=== PATIENT | female | born 1955 | race Hispanic/Latino ===

== ENCOUNTER 2016-12-16 08:23 | Inpatient (IN) | payer MEDICARE, OTHER ==
[2016-12-16] MEDS ORDERED: Albuterol-Ipratrop 3 mg / 0.5 (3 ml) UD IH STA (08:48)
[2016-12-16] MEDS ORDERED: Sodium Chloride 0.9% 1,000 ML IV ONE (08:48)
[2016-12-16] MEDS ORDERED: Albuterol-Ipratrop 3 mg / 0.5 (3 ml) UD ONE ×3 (09:21→11:49)
[2016-12-16 09:26] LABS: BASO % 0.3 % (0.0-2.0); HEMATOCRIT 39.4 % (34.0-47.0); LYMPH # 0.9 K/uL (1.0-4.3); LYMPH % 8.6 % (20.0-40.0); MEAN CELL VOLUME 89.4 fL (81.0-99.0); MEAN CORPUSCULAR HEMOGLOBIN 29.8 pg (27.0-31.0); MEAN CORPUSCULAR HGB CONC 33.3 g/dL (33.0-37.0); MEAN PLATELET VOLUME 8.6 fL (7.2-11.7); MONO # 1.6 K/uL (0.0-0.8); MONO % 15.5 % (0.0-10.0); PLATELET COUNT 128 K/uL (130-400); RED CELL DISTRIBUTION WIDTH 13.5 % (11.5-14.5); WHITE BLOOD COUNT 10.2 K/uL (4.8-10.8)
[2016-12-16 09:36] LABS: CHLORIDE 98 mmol/L (98-107); SODIUM 131 mmol/L (132-148)
[2016-12-16 09:38] LABS: GFR AFRICAN-AMERICAN > 60; POTASSIUM 4.7 mmol/L (3.6-5.2)
[2016-12-16 09:39] LABS: ALB/GLOB RATIO 1.1 (1.0-2.1); ALKALINE PHOSPHATASE 35 U/L (38-126); ALT/SGPT 13 U/L (9-52); AST/SGOT 41 U/L (14-36); BILIRUBIN,TOTAL 0.9 mg/dL (0.2-1.3); BLOOD UREA NITROGEN 12 mg/dL (7-17); CALCIUM 8.7 mg/dl (8.6-10.4); CARBON DIOXIDE 21 mmol/L (22-30); GLUCOSE,RANDOM 112 mg/dL (65-105); TOTAL PROTEIN 8.2 g/dL (6.3-8.3)
[2016-12-16] MEDS ORDERED: Sodium Chloride 0.9% 1,000 ML ONE (09:47)
[2016-12-16 10:07] LABS: VENOUS BLOOD GAS PCO2 43 mmHg (40-60); VENOUS BLOOD PH 7.38 (7.32-7.43)
[2016-12-16] MEDS ORDERED: Albuterol-Ipratrop 3 mg / 0.5 (3 ml) UD INH STA ×2 (10:11→11:37)
[2016-12-16 10:36] LABS: NEUTROPHIL 61 % (50-75); TOTAL CELLS COUNTED 100
[2016-12-16 10:56] LABS: RBC URINE 15 /hpf (0-3); URINE BILIRUBIN NEGATIVE (NEGATIVE); URINE BLOOD 2+ (NEGATIVE); URINE COLOR Yellow (YELLOW); URINE GLUCOSE (UA) NORMAL (Normal); URINE HYALINE CAST 0-2 /lpf (0-2); URINE KETONE TRACE mg/dL (NEGATIVE); URINE LEUKOCYTE ESTERASE NEG Leu/uL (Negative); URINE PROTEIN 1+ mg/dL (NEGATIVE); URINE UROBILINOGEN NORMAL mg/dL (0.2-1.0); WBC URINE 2 /hpf (0-5)
[2016-12-16] MEDS ORDERED: Iodixanol 320 mg/ml 150 ml Bottle IV ONE (11:09)
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
[2016-12-16] MEDS ORDERED: cefTRIAXone IV 1 gm in Dextros 50 ML IV ONE (11:31)
[2016-12-16] MEDS ORDERED: cefTRIAXone IV 1 gm in Dextros 50 ML IVPB ONE (11:49)
[2016-12-16] MEDS ORDERED: Azithromycin 500mg/250ML NS 500 MG/250 ML BAG IV ONE (12:45)
--- NOTE | 2016-12-16 12:51 | RAD ---
Chest x-ray two views History: Shortness of breath. Comparison: None available. Findings: Diffuse increased interstitial lung markings. Biapical pleural thickening with upper lobe granulomatous changes. Scattered nodular densities throughout both lungs. Bibasilar breast and nipple shadows. Heart size within normal limits. Impression: Diffuse increased interstitial lung markings. Biapical pleural thickening with upper lobe granulomatous changes. Scattered nodular densities throughout both lungs.
[2016-12-16] MEDS ORDERED: Azithromycin 500mg/250ML NS 500 MG/250 ML BAG IVPB ONE (13:05)
--- NOTE | 2016-12-16 13:28 | CT ---
CT neck History: Neck pain. Painful swallowing. Comparison: None available. Technique: Axial computed tomographic images of the neck were performed without intravenous contrast. Subsequently, sagittal and coronal reformatted images were obtained. This CT exam was performed using one or more of the following dose reduction techniques: Automated exposure control, adjustment of the mA and/or kV according to patient size, and/or use of iterative reconstruction technique. Findings: Question minimal hypertrophy of the soft tissues of the posterior nasopharynx, nonspecific. Clinical correlation. Hypopharynx appears grossly preserved. Larynx and trachea appear grossly preserved. Submandibular and parotid glands appear preserved. Calcified lesion measuring approximately 1 centimeter seen within the right lobe of the thyroid. Degenerative changes in the spine most prominent at the C5-6 level. Visualized aorta is preserved. Few shotty cervical lymph nodes are noted. Impression: Question minimal hypertrophy of the soft tissues of the posterior nasopharynx, nonspecific. Clinical correlation. Calcified lesion measuring approximately 1 centimeter seen within the right lobe of the thyroid. Degenerative changes in the spine most prominent at the C5-6 level. Few shotty cervical lymph nodes are noted. Additional findings as above. These findings were preliminarily reported at 12:39 p.m. on 12/16/[address] Jonnie Pierre from [facility].
--- NOTE | 2016-12-16 13:57 | CT ---
CT chest pulmonary angiogram History: Shortness of breath. Comparison none. Technique: Multiple contiguous axial images were performed through the chest according to a pulmonary angiogram and pulmonary embolism protocol. Subsequently, sagittal and coronal reformatted images were obtained. Sagittal coronal and MIPS reformatted images were obtained. 100 cc of Visipaque intravenous contrast was administered. This CT exam was performed using one or more of the following dose reduction techniques: Automated exposure control, adjustment of the mA and/or kV according to patient size, and/or use of iterative reconstruction technique. Findings: Limited evaluation for pulmonary embolism given the moderate motion and streak artifact. No evidence of gross central pulmonary embolism. More limited evaluation of the segmental and subsegmental branches. For example a questionable filling defect seen within a subsegmental branch of a right upper lobe pulmonary artery on series 2, image 73 may be artifact. Visualized aorta is preserved. Partial consolidative changes seen within the right lung most prominent in the upper and middle lobes concerning for possible infiltrate. In the right upper lobe this measures up to 1.4 centimeters. In the right middle lobe laterally it measures 2.1 x 0.9 centimeters with additional adjacent more reticulated opacities seen medially at that level. Posttreatment followup is recommended to ensure resolution. Biapical pleural thickening. No evidence of pleural effusion or pneumothorax. Heart size is preserved. Degenerative changes in the visualized osseous structures. Few shotty mediastinal lymph nodes. Mild fatty infiltration of the liver. Partially calcified nodule measuring up to 1 centimeters in the right lobe of the thyroid. Shotty pre carinal lymph node measuring up to 1.5 centimeters. Small hiatal hernia. Some step-off artifact seen within the anterior right clavicle near the sternoclavicular joint space. Impression: Focal consolidative changes within the right upper and middle lobes of the lung concerning for possible infiltrate. Posttreatment interval followup is recommended to ensure resolution and exclude underlying residual disease and or underlying lesion. Limited evaluation for pulmonary embolism given the moderate motion and streak artifact. No evidence of gross central pulmonary embolism. More limited evaluation of the segmental and subsegmental branches. For example a questionable filling defect seen within a subsegmental branch of a right upper lobe pulmonary artery on series 2, image 73 may be artifact. Partially calcified nodule measuring up to 1 centimeters in the right lobe of the thyroid. Shotty pre carinal lymph node measuring up to 1.5 centimeters. Small hiatal hernia. Additional findings as above. These findings were preliminarily reported at 12:30 p.m. on 12/16/[address] Jonnie Pierre from [facility].
[2016-12-16] MEDS ORDERED: Enoxaparin 40 mg Syringe SC SCH (14:15)
[2016-12-16] MEDS ORDERED: Pantoprazole 40 mg EC Tab PO ONE (14:25)
[2016-12-16] MEDS ORDERED: Enoxaparin 40 mg Syringe ONE (14:25)
[2016-12-16] MEDS: Pantoprazole 40 mg EC Tab PO SCH (14:27)
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
--- NOTE | 2016-12-16 15:37 | CP.PCM.CON ---
History of Present Illness - History of Present Illness History of Present Illness: Pt seen and examined. Admitted for SOB and wheezing, CT chest shows RUL and RML consolidative changes and RUL subsegmental filling defect. Patient denies hemoptysis and states that she feels better. Review of Systems - Review of Systems All systems: reviewed and no additional remarkable complaints except (as per HPI ) Past Patient History - Infectious Disease Hx of Infectious Diseases: None - Past Social History Smoking Status: Heavy Smoker > 10 Cigarettes Daily - PSYCHIATRIC Hx Substance Use: No Meds Allergies/Adverse Reactions: Allergies Allergy/AdvReac Type Severity Reaction Status Date / Time No Known Allergies Allergy Verified 12/16/16 08:29 - Medications Medications: Current Medications Albuterol/Ipratropium (Duoneb 3 Mg/0.5 Mg (3 Ml) Ud) 3 ml INH Q6H PRN PRN Reason: Shortness of Breath Enoxaparin Sodium (Lovenox) 40 mg SC DAILY [facility] Last Admin: 12/16/16 14:27 Dose: 40 mg Ceftriaxone Sodium 1 gm/ (Dextrose) 100 mls @ 50 mls/30 min IVPB DAILY [facility] Azithromycin (Zithromax 500mg In Ns Addvantage) 500 mg in 250 mls @ 167 mls/hr IVPB Q24H [facility] Methylprednisolone (Solu-Medrol) 40 mg IVPB Q8H [facility] Montelukast Sodium (Singulair) 10 mg PO HS [facility] Pantoprazole Sodium (Protonix Ec Tab) 40 mg PO DAILY [facility] Last Admin: 12/16/16 14:27 Dose: 40 mg Physical Exam - Eye Exam Eye Exam: Normal appearance Pupil Exam: NORMAL ACCOMODATION - ENT Exam ENT Exam: Mucous Membranes Moist - Respiratory Exam Respiratory Exam: Prolonged Expiratory Phase, Wheezes - Cardiovascular Exam Cardiovascular Exam: REGULAR RHYTHM, +S1, +S2 - GI/Abdominal Exam GI & Abdominal Exam: Normal Bowel Sounds, Soft - Extremities Exam Extremities exam: Positive for: normal inspection - Neurological Exam Neurological exam: Alert, Oriented x3 - Psychiatric Exam Psychiatric exam: Normal Affect, Normal Mood - Skin Skin Exam: Normal Color Results - Vital Signs Recent Vital Signs: Last Vital Signs Temp 98 F 12/16/16 15:26 Pulse 98 H 12/16/16 15:26 Resp 20 12/16/16 15:26 BP 107/68 12/16/16 15:26 Pulse Ox 92 L 12/16/16 15:26 - Labs Result Diagrams: 12/20/16 07:41 12/20/16 07:41 Assessment & Plan - Assessment and Plan (Free Text) Assessment: Asthma Exacerbation PE IV steroids Duonebs Lovenox O2 Follow CBC
--- NOTE | 2016-12-16 21:05 | CP.PCM.HP ---
Past Patient History - Infectious Disease Hx of Infectious Diseases: None - Past Medical History & Family History Past Medical History?: No - Past Social History Smoking Status: Heavy Smoker > 10 Cigarettes Daily - MUSCULOSKELETAL/RHEUMATOLOGICAL Hx Falls: No - PSYCHIATRIC Hx Psychophysiologic Disorder: No Hx Substance Use: No Meds Allergies/Adverse Reactions: Allergies Allergy/AdvReac Type Severity Reaction Status Date / Time No Known Allergies Allergy Verified 12/16/16 08:29 Results - Vital Signs Recent Vital Signs: Last Vital Signs Temp 97.5 F L 12/16/16 17:16 Pulse 83 12/16/16 17:16 Resp 21 12/16/16 17:16 BP 112/70 12/16/16 17:16 Pulse Ox 94 L 12/16/16 18:00 - Labs Result Diagrams: 12/16/16 09:23 12/16/16 09:23 Assessment & Plan - Assessment and Plan (Free Text) Plan: cardiology\pulm possible pe increase lovenox to bid rakesh same v q scan rocephinzithormax pther as ordreed
[2016-12-16] MEDS: Enoxaparin 60 mg Syringe SC SCH (22:18)
[2016-12-16] MEDS: Albuterol-Ipratrop 3 mg / 0.5 (3 ml) UD INH PRN (22:45)
[2016-12-17 01:46] VITALS: RESP 20
[2016-12-17] MEDS: Albuterol-Ipratrop 3 mg / 0.5 (3 ml) UD INH PRN ×2 (10:04→16:49)
[2016-12-17] MEDS: Pantoprazole 40 mg EC Tab PO SCH (10:37)
[2016-12-17] MEDS: Enoxaparin 60 mg Syringe SC SCH ×2 (10:38→22:02)
[2016-12-17] MEDS: MethylPREDNISolone 40 mg Vial IVP SCH ×2 (10:39→18:40)
[2016-12-17] MEDS: cefTRIAXone IV 1 gm in Dextros 1 GM in Dextrose 5% In Water 50 ML IVPB SCH (12:41)
[2016-12-17] MEDS: Azithromycin 500mg/250ML NS 500 MG/250 ML BAG IVPB SCH (13:32)
--- NOTE | 2016-12-17 14:16 | CP.PCM.PN ---
Subjective - Date & Time of Evaluation Date of Evaluation: 12/17/16 Time of Evaluation: 12:00 - Subjective Subjective: in bed, less shortness of breath, no chest pain. Seen by pulmonary on treatment for asthma and workup of pulmonary embolus. Stable cardiac Objective - Vital Signs/Intake and Output Vital Signs (last 24 hours): Temp Pulse Resp BP Pulse Ox 97.3 F L 95 H 20 139/75 95 12/17/16 08:14 12/17/16 08:14 12/17/16 08:14 12/17/16 08:14 12/17/16 08:14 Intake and Output: 12/17/16 12/17/16 06:59 18:59 Intake Total 180 Balance 180 - Medications Medications: Current Medications Albuterol/Ipratropium (Duoneb 3 Mg/0.5 Mg (3 Ml) Ud) 3 ml INH Q6H PRN PRN Reason: Shortness of Breath Last Admin: 12/17/16 10:04 Dose: 3 ml Enoxaparin Sodium (Lovenox) 55 mg SC Q12 [facility] Last Admin: 12/17/16 10:38 Dose: 55 mg Ceftriaxone Sodium 1 gm/ (Dextrose) 100 mls @ 50 mls/30 min IVPB DAILY [facility] Last Admin: 12/17/16 12:41 Dose: 50 mls/30 min Azithromycin (Zithromax 500mg In Ns Addvantage) 500 mg in 250 mls @ 167 mls/hr IVPB Q24H [facility] Last Admin: 12/17/16 13:32 Dose: 167 mls/hr Methylprednisolone (Solu-Medrol) 40 mg IVP Q8H [facility] Last Admin: 12/17/16 10:39 Dose: 40 mg Montelukast Sodium (Singulair) 10 mg PO HS [facility] Last Admin: 12/16/16 22:18 Dose: 10 mg Pantoprazole Sodium (Protonix Ec Tab) 40 mg PO DAILY [facility] Last Admin: 12/17/16 10:37 Dose: 40 mg - Constitutional Appears: Non-toxic - Head Exam Head Exam: ATRAUMATIC - Eye Exam Eye Exam: EOMI - ENT Exam ENT Exam: Mucous Membranes Moist - Neck Exam Neck Exam: absent: Lymphadenopathy, Thyromegaly - Respiratory Exam Respiratory Exam: Prolonged Expiratory Phase, Rhonchi, Wheezes. absent: Rales - Cardiovascular Exam Cardiovascular Exam: REGULAR RHYTHM, Murmur - GI/Abdominal Exam GI & Abdominal Exam: Normal Bowel Sounds. absent: Organomegaly - Rectal Exam Rectal Exam: Deferred - Extremities Exam Extremities Exam: Normal Capillary Refill. absent: Calf Tenderness - Neurological Exam Neurological Exam: Alert, Oriented x3 - Psychiatric Exam Psychiatric exam: Normal Mood - Skin Skin Exam: Dry Assessment and Plan (1) Asthma attack Status: Acute (2) Hypoxia Status: Acute
--- NOTE | 2016-12-17 15:31 | CP.PCM.PN ---
Subjective - Date & Time of Evaluation Date of Evaluation: 12/17/16 Time of Evaluation: 12:45 - Subjective Subjective: clinically same Objective - Vital Signs/Intake and Output Vital Signs (last 24 hours): Temp Pulse Resp BP Pulse Ox 97.3 F L 95 H 20 139/75 95 12/17/16 08:14 12/17/16 08:14 12/17/16 08:14 12/17/16 08:14 12/17/16 08:14 Intake and Output: 12/17/16 12/17/16 06:59 18:59 Intake Total 180 Balance 180 - Medications Medications: Current Medications Albuterol/Ipratropium (Duoneb 3 Mg/0.5 Mg (3 Ml) Ud) 3 ml INH Q6H PRN PRN Reason: Shortness of Breath Last Admin: 12/17/16 10:04 Dose: 3 ml Enoxaparin Sodium (Lovenox) 55 mg SC Q12 [facility] Last Admin: 12/17/16 10:38 Dose: 55 mg Ceftriaxone Sodium 1 gm/ (Dextrose) 100 mls @ 50 mls/30 min IVPB DAILY [facility] Last Admin: 12/17/16 12:41 Dose: 50 mls/30 min Azithromycin (Zithromax 500mg In Ns Addvantage) 500 mg in 250 mls @ 167 mls/hr IVPB Q24H [facility] Last Admin: 12/17/16 13:32 Dose: 167 mls/hr Methylprednisolone (Solu-Medrol) 40 mg IVP Q8H [facility] Last Admin: 12/17/16 10:39 Dose: 40 mg Montelukast Sodium (Singulair) 10 mg PO HS [facility] Last Admin: 12/16/16 22:18 Dose: 10 mg Pantoprazole Sodium (Protonix Ec Tab) 40 mg PO DAILY [facility] Last Admin: 12/17/16 10:37 Dose: 40 mg Assessment and Plan - Assessment and Plan (Free Text) Plan: consult supervisor white sugar rakesh. ceftriaxone rakesh. Duoneb lovenox solu medrol
--- NOTE | 2016-12-17 17:23 | CP.PCM.PN ---
Subjective - Date & Time of Evaluation Date of Evaluation: 12/17/16 Time of Evaluation: 17:00 - Subjective Subjective: Pt seen and examined No events overnight Feels better Objective - Vital Signs/Intake and Output Vital Signs (last 24 hours): Temp Pulse Resp BP Pulse Ox 98.2 F 76 20 110/69 97 12/17/16 15:00 12/17/16 15:00 12/17/16 15:00 12/17/16 15:00 12/17/16 15:00 Intake and Output: 12/17/16 12/17/16 06:59 18:59 Intake Total 180 Balance 180 - Medications Medications: Current Medications Albuterol/Ipratropium (Duoneb 3 Mg/0.5 Mg (3 Ml) Ud) 3 ml INH Q6H PRN PRN Reason: Shortness of Breath Last Admin: 12/17/16 16:49 Dose: 3 ml Enoxaparin Sodium (Lovenox) 55 mg SC Q12 [facility] Last Admin: 12/17/16 10:38 Dose: 55 mg Ceftriaxone Sodium 1 gm/ (Dextrose) 100 mls @ 50 mls/30 min IVPB DAILY [facility] Last Admin: 12/17/16 12:41 Dose: 50 mls/30 min Azithromycin (Zithromax 500mg In Ns Addvantage) 500 mg in 250 mls @ 167 mls/hr IVPB Q24H [facility] Last Admin: 12/17/16 13:32 Dose: 167 mls/hr Methylprednisolone (Solu-Medrol) 40 mg IVP Q8H [facility] Last Admin: 12/17/16 10:39 Dose: 40 mg Montelukast Sodium (Singulair) 10 mg PO HS [facility] Last Admin: 12/16/16 22:18 Dose: 10 mg Pantoprazole Sodium (Protonix Ec Tab) 40 mg PO DAILY [facility] Last Admin: 12/17/16 10:37 Dose: 40 mg - Head Exam Head Exam: NORMAL INSPECTION - Eye Exam Eye Exam: Normal appearance - ENT Exam ENT Exam: Mucous Membranes Moist - Respiratory Exam Respiratory Exam: Decreased Breath Sounds, Prolonged Expiratory Phase, Rhonchi - Cardiovascular Exam Cardiovascular Exam: REGULAR RHYTHM, +S1, +S2 - GI/Abdominal Exam GI & Abdominal Exam: Soft, Normal Bowel Sounds - Extremities Exam Extremities Exam: Normal Inspection Assessment and Plan - Assessment and Plan (Free Text) Assessment: Asthma Exacerbation PE Pneumonia IV steroids Ceftrioxone/Zithromax Gricelda Will discuss CT chest results with radiology Lovenox O2 Follow CBC
[2016-12-18] MEDS: MethylPREDNISolone 40 mg Vial IVP SCH ×3 (02:07→14:03)
[2016-12-18] MEDS: Albuterol-Ipratrop 3 mg / 0.5 (3 ml) UD INH SCH ×3 (09:28→20:11)
[2016-12-18] MEDS: Pantoprazole 40 mg EC Tab PO SCH (09:45)
[2016-12-18] MEDS: cefTRIAXone IV 1 gm in Dextros 1 GM in Dextrose 5% In Water 50 ML IVPB SCH (09:45)
[2016-12-18] MEDS: Enoxaparin 60 mg Syringe SC SCH ×2 (09:46→21:42)
[2016-12-18 11:24] LABS: BASO % 0.3 % (0.0-2.0); HEMATOCRIT 36.4 % (34.0-47.0); LYMPH # 1.6 K/uL (1.0-4.3); LYMPH % 11.5 % (20.0-40.0); MEAN CELL VOLUME 89.7 fL (81.0-99.0); MEAN CORPUSCULAR HEMOGLOBIN 29.5 pg (27.0-31.0); MEAN CORPUSCULAR HGB CONC 32.9 g/dL (33.0-37.0); MEAN PLATELET VOLUME 9.2 fL (7.2-11.7); MONO % 6.9 % (0.0-10.0); NRBC % 0.1 % (0.0-2.0); RED CELL DISTRIBUTION WIDTH 13.6 % (11.5-14.5); WHITE BLOOD COUNT 14.3 K/uL (4.8-10.8)
[2016-12-18 11:41] LABS: CHLORIDE 101 mmol/L (98-107); SODIUM 136 mmol/L (132-148)
[2016-12-18 11:42] LABS: POTASSIUM 3.9 mmol/L (3.6-5.2)
[2016-12-18 11:43] LABS: GFR AFRICAN-AMERICAN > 60
[2016-12-18 11:44] LABS: ALKALINE PHOSPHATASE 47 U/L (38-126); ALT/SGPT 22 U/L (9-52); AST/SGOT 48 U/L (14-36); BILIRUBIN,TOTAL 0.5 mg/dL (0.2-1.3); BLOOD UREA NITROGEN 14 mg/dL (7-17); CARBON DIOXIDE 26 mmol/L (22-30); GLUCOSE,RANDOM 115 mg/dL (65-105); TOTAL PROTEIN 7.1 g/dL (6.3-8.3)
[2016-12-18 11:45] LABS: CALCIUM 8.8 mg/dl (8.6-10.4)
--- NOTE | 2016-12-18 12:03 | CP.PCM.PN ---
Subjective - Date & Time of Evaluation Date of Evaluation: 12/18/16 Time of Evaluation: 12:03 - Subjective Subjective: Pt seen and examined Reports Dyspnea Objective - Vital Signs/Intake and Output Vital Signs (last 24 hours): Temp Pulse Resp BP Pulse Ox 97.7 F 101 H 20 163/90 H 94 L 12/18/16 08:18 12/18/16 08:18 12/18/16 08:18 12/18/16 08:18 12/18/16 08:18 Intake and Output: 12/18/16 12/18/16 06:59 18:59 Intake Total 490 Balance 490 - Medications Medications: Current Medications Albuterol/Ipratropium (Duoneb 3 Mg/0.5 Mg (3 Ml) Ud) 3 ml INH RQ4 [facility] Last Admin: 12/18/16 11:14 Dose: 3 ml Enoxaparin Sodium (Lovenox) 55 mg SC Q12 [facility] Last Admin: 12/18/16 09:46 Dose: 55 mg Ceftriaxone Sodium 1 gm/ (Dextrose) 100 mls @ 50 mls/30 min IVPB DAILY [facility] Last Admin: 12/18/16 09:45 Dose: 50 mls/30 min Azithromycin (Zithromax 500mg In Ns Addvantage) 500 mg in 250 mls @ 167 mls/hr IVPB Q24H [facility] Last Admin: 12/17/16 13:32 Dose: 167 mls/hr Methylprednisolone (Solu-Medrol) 40 mg IVP Q8H [facility] Last Admin: 12/18/16 09:46 Dose: 40 mg Montelukast Sodium (Singulair) 10 mg PO HS [facility] Last Admin: 12/17/16 22:02 Dose: 10 mg Pantoprazole Sodium (Protonix Ec Tab) 40 mg PO DAILY [facility] Last Admin: 12/18/16 09:45 Dose: 40 mg - Labs Labs: 12/18/16 11:12 - Head Exam Head Exam: NORMAL INSPECTION - Eye Exam Eye Exam: Normal appearance - ENT Exam ENT Exam: Mucous Membranes Moist - Respiratory Exam Respiratory Exam: Decreased Breath Sounds, Clear to Ausculation Bilateral - Cardiovascular Exam Cardiovascular Exam: REGULAR RHYTHM, +S1, +S2 - GI/Abdominal Exam GI & Abdominal Exam: Soft, Normal Bowel Sounds - Neurological Exam Neurological Exam: Normal Gait, Oriented x3 - Psychiatric Exam Psychiatric exam: Normal Affect, Normal Mood Assessment and Plan - Assessment and Plan (Free Text) Assessment: Asthma Exacerbation PE Pneumonia IV steroids Ceftrioxone/Zithromax Duonebs Lovenox O2 Supportive care DVT/GI prophalaxis
[2016-12-18 12:14] LABS: MAGNESIUM 1.9 mg/dL (1.6-2.3)
--- NOTE | 2016-12-18 12:18 | CP.PCM.PN ---
Subjective - Date & Time of Evaluation Date of Evaluation: 12/18/16 Time of Evaluation: 14:00 - Subjective Subjective: Dr. Aman Garcias note: Patient seen and examined in room. She is complaing of coughing, wheezing, and chest tightness. She says she felt chills but fever or nausea, vomiting, or plapitaitons. She does have asthma but takes no home medication for it. She does report a productive cough for a few days before admission. Objective - Vital Signs/Intake and Output Vital Signs (last 24 hours): Temp Pulse Resp BP Pulse Ox 97.7 F 101 H 20 163/90 H 94 L 12/18/16 08:18 12/18/16 08:18 12/18/16 08:18 12/18/16 08:18 12/18/16 08:18 Intake and Output: 12/18/16 12/18/16 06:59 18:59 Intake Total 490 Balance 490 - Medications Medications: Current Medications Albuterol/Ipratropium (Duoneb 3 Mg/0.5 Mg (3 Ml) Ud) 3 ml INH RQ4 [facility] Last Admin: 12/18/16 11:14 Dose: 3 ml Enoxaparin Sodium (Lovenox) 55 mg SC Q12 [facility] Last Admin: 12/18/16 09:46 Dose: 55 mg Ceftriaxone Sodium 1 gm/ (Dextrose) 100 mls @ 50 mls/30 min IVPB DAILY [facility] Last Admin: 12/18/16 09:45 Dose: 50 mls/30 min Azithromycin (Zithromax 500mg In Ns Addvantage) 500 mg in 250 mls @ 167 mls/hr IVPB Q24H [facility] Last Admin: 12/17/16 13:32 Dose: 167 mls/hr Methylprednisolone (Solu-Medrol) 40 mg IVP Q8H [facility] Last Admin: 12/18/16 09:46 Dose: 40 mg Montelukast Sodium (Singulair) 10 mg PO HS [facility] Last Admin: 12/17/16 22:02 Dose: 10 mg Pantoprazole Sodium (Protonix Ec Tab) 40 mg PO DAILY [facility] Last Admin: 12/18/16 09:45 Dose: 40 mg - Labs Labs: 12/18/16 11:12 12/18/16 11:12 - Constitutional Appears: Non-toxic, No Acute Distress, Chronically Ill - Head Exam Head Exam: NORMAL INSPECTION - Eye Exam Eye Exam: Normal appearance Pupil Exam: NORMAL ACCOMODATION - Respiratory Exam Respiratory Exam: Decreased Breath Sounds, Wheezes. absent: Clear to Ausculation Bilateral, Rales, Rhonchi - Cardiovascular Exam Cardiovascular Exam: REGULAR RHYTHM, RRR. absent: Gallop, Rubs, +S1, +S2 - GI/Abdominal Exam GI & Abdominal Exam: Soft, Normal Bowel Sounds. absent: Tenderness - Extremities Exam Extremities Exam: Normal Inspection. absent: Pedal Edema - Neurological Exam Neurological Exam: Alert - Psychiatric Exam Psychiatric exam: Normal Affect, Normal Mood - Skin Skin Exam: Normal Color, Warm Assessment and Plan (1) Pneumonia Assessment & Plan: IV Rocephin and IV Zithromax, follow sputum culture. Status: Acute (2) Asthma Assessment & Plan: Duoneb, and solumedrol Q6H Status: Acute (3) Thyroid lesion Assessment & Plan: seen on CT scan, Dr. Ozuna consulted per Dr. Aman Zacarias. Status: Acute (4) Pulmonary embolism Assessment & Plan: Theraputic Lovenox Status: Acute (5) Prophylactic measure Assessment & Plan: Protonix and theraputic Lovenox. Status: Acute
[2016-12-18] MEDS: Azithromycin 500mg/250ML NS 500 MG/250 ML BAG IVPB SCH (12:31)
--- NOTE | 2016-12-18 12:36 | PCM.PSYCH ---
Initial Psychiatric Evaluation - Initial Psychiatric Evaluation Current Medications: Active Medications Generic Name Dose Route Start Last Admin Trade Name Micah PRN Reason Stop Dose Admin Albuterol/Ipratropium 3 ml 12/18/16 14:00 Duoneb 3 Mg/0.5 Mg (3 Ml) Ud INH RQ6 [facility] Enoxaparin Sodium 55 mg 12/16/16 22:00 12/18/16 09:46 Lovenox SC 55 mg Q12 [facility] Administration Ceftriaxone Sodium 1 gm/ 100 mls @ 50 mls/30 min 12/17/16 13:00 12/18/16 09: 45 Dextrose IVPB 50 mls/30 min DAILY [facility] Administration Azithromycin 500 mg in 250 mls @ 167 mls/hr 12/17/16 13:00 12/18/16 12:31 Zithromax 500mg In Ns Addvantage IVPB 167 mls/hr Q24H [facility] Administration Methylprednisolone 40 mg 12/17/16 10:00 12/18/16 09:46 Solu-Medrol IVP 40 mg Q8H [facility] Administration Montelukast Sodium 10 mg 12/16/16 22:00 12/17/16 22:02 Singulair PO 10 mg HS [facility] Administration Pantoprazole Sodium 40 mg 12/16/16 14:15 12/18/16 09:45 Protonix Ec Tab PO 40 mg DAILY [facility] Administration Past Psychiatric History - Past Psychiatric History Pertinent Medical Hx (Current Medical&Sleep Prob, Allergies): Allergies Allergy/AdvReac Type Severity Reaction Status Date / Time No Known Allergies Allergy Verified 12/16/16 08:29 No Known Home Med 12/16/16
--- NOTE | 2016-12-18 13:10 | CP.PCM.PN ---
Subjective - Date & Time of Evaluation Date of Evaluation: 12/18/16 Time of Evaluation: 12:00 - Subjective Subjective: Echocardiogram with normal left ventricular contractility, no aortic stenosis, no pericardial disease. Improved shortness of breath with treatment of asthma, seen by psych. With follow Objective - Vital Signs/Intake and Output Vital Signs (last 24 hours): Temp Pulse Resp BP Pulse Ox 97.7 F 101 H 20 163/90 H 94 L 12/18/16 08:18 12/18/16 08:18 12/18/16 08:18 12/18/16 08:18 12/18/16 08:18 Intake and Output: 12/18/16 12/18/16 06:59 18:59 Intake Total 490 Balance 490 - Medications Medications: Current Medications Albuterol/Ipratropium (Duoneb 3 Mg/0.5 Mg (3 Ml) Ud) 3 ml INH RQ6 [facility] Enoxaparin Sodium (Lovenox) 55 mg SC Q12 [facility] Last Admin: 12/18/16 09:46 Dose: 55 mg Ceftriaxone Sodium 1 gm/ (Dextrose) 100 mls @ 50 mls/30 min IVPB DAILY [facility] Last Admin: 12/18/16 09:45 Dose: 50 mls/30 min Azithromycin (Zithromax 500mg In Ns Addvantage) 500 mg in 250 mls @ 167 mls/hr IVPB Q24H [facility] Last Admin: 12/18/16 12:31 Dose: 167 mls/hr Methylprednisolone (Solu-Medrol) 40 mg IVP Q8H [facility] Last Admin: 12/18/16 09:46 Dose: 40 mg Montelukast Sodium (Singulair) 10 mg PO HS [facility] Last Admin: 12/17/16 22:02 Dose: 10 mg Pantoprazole Sodium (Protonix Ec Tab) 40 mg PO DAILY [facility] Last Admin: 12/18/16 09:45 Dose: 40 mg Trazodone HCl (Desyrel) 25 mg PO HS PRN PRN Reason: Insomnia - Labs Labs: 12/18/16 11:12 12/18/16 11:12 - Constitutional Appears: Non-toxic - Head Exam Head Exam: ATRAUMATIC - Eye Exam Eye Exam: EOMI - ENT Exam ENT Exam: Mucous Membranes Moist - Neck Exam Neck Exam: absent: Lymphadenopathy, Thyromegaly - Respiratory Exam Respiratory Exam: Clear to Ausculation Bilateral. absent: Rales - Cardiovascular Exam Cardiovascular Exam: REGULAR RHYTHM, Murmur - GI/Abdominal Exam GI & Abdominal Exam: Normal Bowel Sounds. absent: Organomegaly - Rectal Exam Rectal Exam: Deferred - Extremities Exam Extremities Exam: Normal Capillary Refill. absent: Calf Tenderness - Neurological Exam Neurological Exam: Alert, Oriented x3 - Psychiatric Exam Psychiatric exam: Normal Mood - Skin Skin Exam: Dry Assessment and Plan (1) Asthma attack Status: Acute (2) Hypoxia Status: Acute
--- NOTE | 2016-12-18 17:11 | CP.PCM.PN ---
Subjective - Date & Time of Evaluation Date of Evaluation: 12/18/16 Time of Evaluation: 09:00 - Subjective Subjective: clinically same Objective - Vital Signs/Intake and Output Vital Signs (last 24 hours): Temp Pulse Resp BP Pulse Ox 98 F 82 20 147/77 94 L 12/18/16 16:00 12/18/16 16:00 12/18/16 16:00 12/18/16 16:00 12/18/16 16:00 Intake and Output: 12/18/16 12/18/16 06:59 18:59 Intake Total 490 Balance 490 - Medications Medications: Current Medications Albuterol/Ipratropium (Duoneb 3 Mg/0.5 Mg (3 Ml) Ud) 3 ml INH RQ6 [facility] Enoxaparin Sodium (Lovenox) 55 mg SC Q12 [facility] Last Admin: 12/18/16 09:46 Dose: 55 mg Ceftriaxone Sodium 1 gm/ (Dextrose) 100 mls @ 50 mls/30 min IVPB DAILY [facility] Last Admin: 12/18/16 09:45 Dose: 50 mls/30 min Azithromycin (Zithromax 500mg In Ns Addvantage) 500 mg in 250 mls @ 167 mls/hr IVPB Q24H [facility] Last Admin: 12/18/16 12:31 Dose: 167 mls/hr Methylprednisolone (Solu-Medrol) 40 mg IVP Q8 [facility] Last Admin: 12/18/16 14:03 Dose: Not Given Montelukast Sodium (Singulair) 10 mg PO HS [facility] Last Admin: 12/17/16 22:02 Dose: 10 mg Pantoprazole Sodium (Protonix Ec Tab) 40 mg PO DAILY [facility] Last Admin: 12/18/16 09:45 Dose: 40 mg Trazodone HCl (Desyrel) 25 mg PO HS PRN PRN Reason: Insomnia - Labs Labs: 12/18/16 11:12 12/18/16 11:12 - Constitutional Appears: Well - Head Exam Head Exam: ATRAUMATIC, NORMAL INSPECTION, NORMOCEPHALIC - Eye Exam Eye Exam: EOMI, Normal appearance, PERRL Pupil Exam: NORMAL ACCOMODATION, PERRL - ENT Exam ENT Exam: Mucous Membranes Moist, Normal Exam - Neck Exam Neck Exam: Full ROM, Normal Inspection. absent: Lymphadenopathy - Respiratory Exam Respiratory Exam: Decreased Breath Sounds - Cardiovascular Exam Cardiovascular Exam: REGULAR RHYTHM, +S1, +S2 - GI/Abdominal Exam GI & Abdominal Exam: Soft, Diminished Bowel Sounds - Rectal Exam Rectal Exam: Deferred
--- NOTE | 2016-12-18 18:05 | CARD ---
APPROVED REPORT EXAM: Two-dimensional and M-mode echocardiogram with Doppler and color Doppler. Other Information Quality : GoodRhythm : NSR INDICATION SOB RISK FACTORS Smoking 2D DIMENSIONS IVSd0.9 (0.7-1.1cm)LVDd4.3 (3.9-5.9cm) PWd0.5 (0.7-1.1cm)LVDs3.4 (2.5-4.0cm) FS (%) 21.0 %LVEF (%)43.0 (>50%) Aortic Valve AI P 1/2 [id number] Mitral Valve MV E Oigzulaj70.2cm/sMV A Cbwyregk23.2cm/sE/A ratio1.3 TDI E/Lateral E'0.0E/Medial E'0.0 Tricuspid Valve TR Peak [id number]/sTR Peak [id number] LEFT VENTRICLE The left ventricle is normal size. There is normal left ventricular wall thickness. The left ventricular function is normal. The left ventricular ejection fraction is within the normal range. There is normal LV segmental wall motion. The left ventricular diastolic function is normal. RIGHT VENTRICLE The right ventricle is normal size. ATRIA The left atrium is mildly dilated. The right atrium is borderline dilated. AORTIC VALVE There is mild aortic regurgitation. MITRAL VALVE Mitral regurgitation is trace. TRICUSPID VALVE There is mild tricuspid regurgitation. <Conclusion> Normal LV systolic function. Dilated LA. Mild AR. Trace MR. Mild TR.
[2016-12-18] MEDS ORDERED: traZODone 25 mg Tab PO PRN (22:00)
[2016-12-19] MEDS: MethylPREDNISolone 40 mg Vial IVP SCH ×5 (00:19→22:36)
[2016-12-19] MEDS: Albuterol-Ipratrop 3 mg / 0.5 (3 ml) UD INH SCH ×4 (02:17→20:04)
[2016-12-19] MEDS: Albuterol-Ipratrop 3 mg / 0.5 (3 ml) UD INH PRN (05:30)
[2016-12-19] MEDS: Enoxaparin 60 mg Syringe SC SCH (09:49)
[2016-12-19] MEDS: Pantoprazole 40 mg EC Tab PO SCH (09:50)
[2016-12-19] MEDS: cefTRIAXone IV 1 gm in Dextros 1 GM in Dextrose 5% In Water 50 ML IVPB SCH (09:53)
[2016-12-19] MEDS: Divalproex 500 mg DR Tab PO SCH ×3 (11:22→22:36)
[2016-12-19 11:33] LABS: BASO % 0.2 % (0.0-2.0); HEMATOCRIT 35.8 % (34.0-47.0); LYMPH # 1.1 K/uL (1.0-4.3); LYMPH % 11.5 % (20.0-40.0); MEAN CELL VOLUME 90.1 fL (81.0-99.0); MEAN CORPUSCULAR HEMOGLOBIN 29.7 pg (27.0-31.0); MEAN PLATELET VOLUME 9.2 fL (7.2-11.7); MONO # 0.9 K/uL (0.0-0.8); MONO % 9.2 % (0.0-10.0); RED CELL DISTRIBUTION WIDTH 13.4 % (11.5-14.5); WHITE BLOOD COUNT 9.8 K/uL (4.8-10.8)
[2016-12-19 11:50] LABS: CHLORIDE 102 mmol/L (98-107)
[2016-12-19 11:51] LABS: POTASSIUM 3.4 mmol/L (3.6-5.2); SODIUM 138 mmol/L (132-148)
[2016-12-19 11:53] LABS: ALKALINE PHOSPHATASE 40 U/L (38-126); AST/SGOT 40 U/L (14-36); BILIRUBIN,TOTAL 0.5 mg/dL (0.2-1.3); BLOOD UREA NITROGEN 15 mg/dL (7-17); CARBON DIOXIDE 27 mmol/L (22-30); GFR AFRICAN-AMERICAN > 60; GLUCOSE,RANDOM 128 mg/dL (65-105); TOTAL PROTEIN 7.1 g/dL (6.3-8.3)
[2016-12-19 11:54] LABS: ALT/SGPT 24 U/L (9-52); CALCIUM 9.1 mg/dl (8.6-10.4)
[2016-12-19] MEDS ORDERED: Iohexol 240 (50 ml) PO ONE (12:15)
--- NOTE | 2016-12-19 12:15 | CP.PCM.PN ---
Subjective - Date & Time of Evaluation Date of Evaluation: 12/19/16 Time of Evaluation: 12:00 - Subjective Subjective: Improved shortness of breath, on treatment for asthma, echo with normal left ventricular contractility, abd pain, seen by surgery, stable Objective - Vital Signs/Intake and Output Vital Signs (last 24 hours): Temp Pulse Resp BP Pulse Ox 97.6 F 81 20 126/74 95 12/19/16 08:00 12/19/16 08:00 12/19/16 08:00 12/19/16 08:00 12/19/16 08:00 Intake and Output: 12/19/16 12/19/16 06:59 18:59 Intake Total 200 Balance 200 - Medications Medications: Current Medications Albuterol/Ipratropium (Duoneb 3 Mg/0.5 Mg (3 Ml) Ud) 3 ml INH RQ6 [facility] Last Admin: 12/19/16 09:01 Dose: 3 ml Benztropine Mesylate (Cogentin) 1 mg PO BID [facility] Last Admin: 12/19/16 11:22 Dose: Not Given Divalproex Sodium (Depakote Dr) 500 mg PO BID [facility] Last Admin: 12/19/16 11:22 Dose: Not Given Enoxaparin Sodium (Lovenox) 55 mg SC Q12 [facility] Last Admin: 12/19/16 09:49 Dose: 55 mg Ceftriaxone Sodium 1 gm/ (Dextrose) 100 mls @ 50 mls/30 min IVPB DAILY [facility] Last Admin: 12/19/16 09:53 Dose: 50 mls/30 min Azithromycin (Zithromax 500mg In Ns Addvantage) 500 mg in 250 mls @ 167 mls/hr IVPB Q24H [facility] Last Admin: 12/18/16 12:31 Dose: 167 mls/hr Iohexol (Omnipaque 240 (50 Ml)) 50 ml PO ONCE ONE Stop: 12/19/16 12:16 Methylprednisolone (Solu-Medrol) 40 mg IVP Q8 [facility] Last Admin: 12/19/16 06:31 Dose: 40 mg Montelukast Sodium (Singulair) 10 mg PO HS [facility] Last Admin: 12/18/16 21:43 Dose: 10 mg Pantoprazole Sodium (Protonix Ec Tab) 40 mg PO DAILY [facility] Last Admin: 12/19/16 09:50 Dose: 40 mg Risperidone (Risperdal Tab) 1 mg PO DAILY [facility] Last Admin: 12/19/16 11:23 Dose: Not Given Trazodone HCl (Desyrel) 50 mg PO HS PRN PRN Reason: Insomnia - Labs Labs: 12/19/16 11:22 12/19/16 11:22 - Constitutional Appears: Non-toxic - Head Exam Head Exam: ATRAUMATIC - Eye Exam Eye Exam: EOMI - ENT Exam ENT Exam: Mucous Membranes Moist - Neck Exam Neck Exam: absent: Lymphadenopathy, Thyromegaly - Respiratory Exam Respiratory Exam: Clear to Ausculation Bilateral. absent: Rales - Cardiovascular Exam Cardiovascular Exam: REGULAR RHYTHM, Murmur - GI/Abdominal Exam GI & Abdominal Exam: Soft, Tenderness, Normal Bowel Sounds. absent: Organomegaly - Rectal Exam Rectal Exam: Deferred - Extremities Exam Extremities Exam: Normal Capillary Refill. absent: Calf Tenderness - Neurological Exam Neurological Exam: Alert, Oriented x3 - Psychiatric Exam Psychiatric exam: Normal Mood - Skin Skin Exam: Dry Assessment and Plan (1) Asthma attack Status: Acute (2) Hypoxia Status: Acute
--- NOTE | 2016-12-19 12:49 | CP.PCM.CON ---
<Tyson Cobb - Last Filed: 12/19/16 16:29> History of Present Illness - History of Present Illness History of Present Illness: SURGERY CONSULT NOTE FOR DR. QUIJANO 61F presents to [facility] for respiratory issues. Surgery consulted for abdominal pain. Patient states pain started yesterday all of a sudden. She states the pain is all across the lower abdomen. She denies nausea/vomiting/ fevers/chills. She states she is passing gas and having normal BMs. Non bloody. She has never had a colonoscopy. PMH:bipolar, asthma PSH: denies any past operations Social: smoker, denies alcohol, denies illicit drugs Allergies: NKDA Past Patient History - Infectious Disease Hx of Infectious Diseases: None - Past Medical History & Family History Past Medical History?: No - Past Social History Smoking Status: Heavy Smoker > 10 Cigarettes Daily - MUSCULOSKELETAL/RHEUMATOLOGICAL Hx Falls: No - PSYCHIATRIC Hx Psychophysiologic Disorder: No Hx Substance Use: No Meds Allergies/Adverse Reactions: Allergies Allergy/AdvReac Type Severity Reaction Status Date / Time No Known Allergies Allergy Verified 12/16/16 08:29 - Medications Medications: Current Medications Albuterol/Ipratropium (Duoneb 3 Mg/0.5 Mg (3 Ml) Ud) 3 ml INH RQ6 [facility] Last Admin: 12/19/16 09:01 Dose: 3 ml Benztropine Mesylate (Cogentin) 1 mg PO BID [facility] Last Admin: 12/19/16 12:47 Dose: 1 mg Divalproex Sodium (Depakote Dr) 500 mg PO BID [facility] Last Admin: 12/19/16 12:42 Dose: 500 mg Enoxaparin Sodium (Lovenox) 55 mg SC Q12 [facility] Last Admin: 12/19/16 09:49 Dose: 55 mg Ceftriaxone Sodium 1 gm/ (Dextrose) 100 mls @ 50 mls/30 min IVPB DAILY [facility] Last Admin: 12/19/16 09:53 Dose: 50 mls/30 min Azithromycin (Zithromax 500mg In Ns Addvantage) 500 mg in 250 mls @ 167 mls/hr IVPB Q24H [facility] Last Admin: 12/18/16 12:31 Dose: 167 mls/hr Methylprednisolone (Solu-Medrol) 40 mg IVP Q8 [facility] Last Admin: 12/19/16 06:31 Dose: 40 mg Montelukast Sodium (Singulair) 10 mg PO HS [facility] Last Admin: 12/18/16 21:43 Dose: 10 mg Pantoprazole Sodium (Protonix Ec Tab) 40 mg PO DAILY [facility] Last Admin: 12/19/16 09:50 Dose: 40 mg Risperidone (Risperdal Tab) 1 mg PO DAILY [facility] Last Admin: 12/19/16 12:42 Dose: 1 mg Trazodone HCl (Desyrel) 50 mg PO HS PRN PRN Reason: Insomnia Physical Exam - Constitutional Appears: Non-toxic, No Acute Distress - Head Exam Head Exam: ATRAUMATIC - Eye Exam Eye Exam: EOMI, PERRL - ENT Exam ENT Exam: Mucous Membranes Moist - Respiratory Exam Respiratory Exam: Clear to Auscultation Bilateral, NORMAL BREATHING PATTERN - Cardiovascular Exam Cardiovascular Exam: REGULAR RHYTHM, +S1, +S2 - GI/Abdominal Exam GI & Abdominal Exam: Soft, Tenderness (moderate tenderness in the RLQ). absent : Distended, Firm, Guarding, Rebound, Rigid - Extremities Exam Extremities exam: Negative for: pedal edema, tenderness - Neurological Exam Neurological exam: Alert, Oriented x3 - Psychiatric Exam Psychiatric exam: Normal Affect Additional comments: patient appears irritated - Skin Skin Exam: Dry, Intact, Normal Color, Warm Results - Vital Signs Recent Vital Signs: Last Vital Signs Temp 97.6 F 12/19/16 08:00 Pulse 81 12/19/16 08:00 Resp 20 12/19/16 08:00 BP 126/74 12/19/16 08:00 Pulse Ox 95 12/19/16 08:00 - Labs Result Diagrams: 12/19/16 11:22 12/19/16 11:22 Labs: Laboratory Results - last 24 hr 12/19/16 12/19/16 11:22 11:22 WBC 9.8 RBC 3.98 Hgb 11.8 Hct 35.8 MCV 90.1 MCH 29.7 MCHC 33.0 RDW 13.4 Plt Count 188 MPV 9.2 Neut % (Auto) 79.1 H Lymph % (Auto) 11.5 L [place] % (Auto) 9.2 Eos % (Auto) 0.0 Baso % (Auto) 0.2 Neut # 7.7 H Lymph # 1.1 [place] # 0.9 H Eos # 0.0 Baso # 0.0 Sodium 138 Potassium 3.4 L Chloride 102 Carbon Dioxide 27 Anion Gap 12 BUN 15 Creatinine 0.6 L Est GFR ( Amer) > 60 Est GFR (Non-Af Amer) > 60 Random Glucose 128 H Calcium 9.1 Total Bilirubin 0.5 AST 40 H ALT 24 Alkaline Phosphatase 40 Total Protein 7.1 Albumin 3.6 Globulin 3.6 Albumin/Globulin Ratio 1.0 Assessment & Plan - Assessment and Plan (Free Text) Assessment: 61F presents with lower abdominal pain 2/2 unknown etiology Plan: - NPO, pain control, anti-nausea - continue Antibiotics - serial abdominal exams - follow up abdominal CT scan with contrast Further recs discuss with Dr. Macie Cobb PGY1 <Sudhir Quijano - Last Filed: 12/19/16 16:40> Meds - Medications Medications: Current Medications Albuterol/Ipratropium (Duoneb 3 Mg/0.5 Mg (3 Ml) Ud) 3 ml INH RQ6 [facility] Last Admin: 12/19/16 13:26 Dose: 3 ml Benztropine Mesylate (Cogentin) 1 mg PO BID [facility] Last Admin: 12/19/16 12:47 Dose: 1 mg Divalproex Sodium (Depakote Dr) 500 mg PO BID [facility] Last Admin: 12/19/16 12:42 Dose: 500 mg Enoxaparin Sodium (Lovenox) 55 mg SC Q12 [facility] Last Admin: 12/19/16 09:49 Dose: 55 mg Ceftriaxone Sodium 1 gm/ (Dextrose) 100 mls @ 50 mls/30 min IVPB DAILY [facility] Last Admin: 12/19/16 09:53 Dose: 50 mls/30 min Azithromycin (Zithromax 500mg In Ns Addvantage) 500 mg in 250 mls @ 167 mls/hr IVPB Q24H [facility] Last Admin: 12/19/16 13:14 Dose: 167 mls/hr Sodium Chloride (Sodium Chloride 0.9%) 1,000 mls @ 100 mls/hr IV .Q10H [facility] Last Admin: 12/19/16 13:48 Dose: 100 mls/hr Potassium Chloride (Potassium Chloride 20 Meq/100 Ml) 20 meq in 100 mls @ 50 mls/hr IVPB ONCE ONE Stop: 12/19/16 18:06 Methylprednisolone (Solu-Medrol) 40 mg IVP Q8 [facility] Last Admin: 12/19/16 13:05 Dose: Not Given Montelukast Sodium (Singulair) 10 mg PO HS [facility] Last Admin: 12/18/16 21:43 Dose: 10 mg Morphine Sulfate (Morphine) 4 mg IVP Q4 PRN PRN Reason: Pain, moderate (4-7) Pantoprazole Sodium (Protonix Inj) 40 mg IVP DAILY [facility] Risperidone (Risperdal Tab) 1 mg PO DAILY [facility] Last Admin: 12/19/16 12:42 Dose: 1 mg Trazodone HCl (Desyrel) 50 mg PO HS PRN PRN Reason: Insomnia Results - Vital Signs Recent Vital Signs: Last Vital Signs Temp 97.6 F 12/19/16 08:00 Pulse 81 12/19/16 08:00 Resp 20 12/19/16 08:00 BP 126/74 12/19/16 08:00 Pulse Ox 95 12/19/16 08:00 - Labs Result Diagrams: 12/19/16 11:22 12/19/16 11:22 Labs: Laboratory Results - last 24 hr 12/19/16 12/19/16 11:22 11:22 WBC 9.8 RBC 3.98 Hgb 11.8 Hct 35.8 MCV 90.1 MCH 29.7 MCHC 33.0 RDW 13.4 Plt Count 188 MPV 9.2 Neut % (Auto) 79.1 H Lymph % (Auto) 11.5 L [place] % (Auto) 9.2 Eos % (Auto) 0.0 Baso % (Auto) 0.2 Neut # 7.7 H Lymph # 1.1 [place] # 0.9 H Eos # 0.0 Baso # 0.0 Sodium 138 Potassium 3.4 L Chloride 102 Carbon Dioxide 27 Anion Gap 12 BUN 15 Creatinine 0.6 L Est GFR ( Amer) > 60 Est GFR (Non-Af Amer) > 60 Random Glucose 128 H Calcium 9.1 Total Bilirubin 0.5 AST 40 H ALT 24 Alkaline Phosphatase 40 Total Protein 7.1 Albumin 3.6 Globulin 3.6 Albumin/Globulin Ratio 1.0 Attending/Attestation - Attestation I have personally seen and examined this patient.: Yes I have fully participated in the care of the patient.: Yes I have reviewed all pertinent clinical information: Yes Notes (Text): 12/19/16 16:38 Pt was seen and examined at bedside on 12/19/16 Agree with above note and assessment. Pt with Lower abdominal pain and tenderness CT scan of A/P suggestive of Rectus muscles bleeding No need for any surgical intervention at present IR consult f/U H/H Plan d.w pt and PMD in detail Risk and benefit explained in detail. C/w current mx
[2016-12-19] MEDS: Azithromycin 500mg/250ML NS 500 MG/250 ML BAG IVPB SCH (13:14)
--- NOTE | 2016-12-19 13:32 | CP.PCM.PN ---
Subjective - Date & Time of Evaluation Date of Evaluation: 12/19/16 Time of Evaluation: 08:40 - Subjective Subjective: clinically same Objective - Vital Signs/Intake and Output Vital Signs (last 24 hours): Temp Pulse Resp BP Pulse Ox 97.6 F 81 20 126/74 95 12/19/16 08:00 12/19/16 08:00 12/19/16 08:00 12/19/16 08:00 12/19/16 08:00 Intake and Output: 12/19/16 12/19/16 06:59 18:59 Intake Total 200 Balance 200 - Medications Medications: Current Medications Albuterol/Ipratropium (Duoneb 3 Mg/0.5 Mg (3 Ml) Ud) 3 ml INH RQ6 [facility] Last Admin: 12/19/16 13:26 Dose: 3 ml Benztropine Mesylate (Cogentin) 1 mg PO BID [facility] Last Admin: 12/19/16 12:47 Dose: 1 mg Divalproex Sodium (Depakote Dr) 500 mg PO BID [facility] Last Admin: 12/19/16 12:42 Dose: 500 mg Enoxaparin Sodium (Lovenox) 55 mg SC Q12 [facility] Last Admin: 12/19/16 09:49 Dose: 55 mg Ceftriaxone Sodium 1 gm/ (Dextrose) 100 mls @ 50 mls/30 min IVPB DAILY [facility] Last Admin: 12/19/16 09:53 Dose: 50 mls/30 min Azithromycin (Zithromax 500mg In Ns Addvantage) 500 mg in 250 mls @ 167 mls/hr IVPB Q24H [facility] Last Admin: 12/19/16 13:14 Dose: 167 mls/hr Sodium Chloride (Sodium Chloride 0.9%) 1,000 mls @ 100 mls/hr IV .Q10H [facility] Methylprednisolone (Solu-Medrol) 40 mg IVP Q8 [facility] Last Admin: 12/19/16 13:05 Dose: Not Given Montelukast Sodium (Singulair) 10 mg PO HS [facility] Last Admin: 12/18/16 21:43 Dose: 10 mg Pantoprazole Sodium (Protonix Ec Tab) 40 mg PO DAILY [facility] Last Admin: 12/19/16 09:50 Dose: 40 mg Risperidone (Risperdal Tab) 1 mg PO DAILY [facility] Last Admin: 12/19/16 12:42 Dose: 1 mg Trazodone HCl (Desyrel) 50 mg PO HS PRN PRN Reason: Insomnia - Labs Labs: 12/19/16 11:22 12/19/16 11:22 - Constitutional Appears: Well - Head Exam Head Exam: ATRAUMATIC, NORMAL INSPECTION, NORMOCEPHALIC - Eye Exam Eye Exam: EOMI, Normal appearance, PERRL Pupil Exam: NORMAL ACCOMODATION, PERRL - ENT Exam ENT Exam: Mucous Membranes Moist, Normal Exam - Neck Exam Neck Exam: Full ROM, Normal Inspection. absent: Lymphadenopathy - Respiratory Exam Respiratory Exam: Decreased Breath Sounds - Cardiovascular Exam Cardiovascular Exam: REGULAR RHYTHM, +S1, +S2 - GI/Abdominal Exam GI & Abdominal Exam: Soft, Diminished Bowel Sounds - Rectal Exam Rectal Exam: Deferred Assessment and Plan - Assessment and Plan (Free Text) Plan: Surgical consult because of the severe right lower quadrant pain CT scan and Continue same n.p.o. Follow-up with but negative We will hold the Lovenox and needs Dr. ham but negative thinks he still being which is less likely then will stop the Lovenox
[2016-12-19] MEDS: Sodium Chloride 0.9% 1,000 ML IV SCH (13:48)
[2016-12-19] MEDS ORDERED: Iodixanol 320 MG/ML 100 ML BOTTLE IV ONE (14:51)
[2016-12-19] MEDS ORDERED: Morphine 4 MG/ML VIAL IVP PRN (15:32)
--- NOTE | 2016-12-19 15:48 | CT ---
PROCEDURE: CT Abdomen and Pelvis with oral and IV contrast. HISTORY: rule out appendicitis or bleed COMPARISON: None available. TECHNIQUE: Contiguous axial images of the abdomen and pelvis. Oral and IV contrast was administered. Coronal and Sagittal reformats generated and reviewed. Contrast dose: 100 mL Visipaque Radiation dose: Total exam DLP = 302.39 mGy-cm. This CT exam was performed using one or more of the following dose reduction techniques: Automated exposure control, adjustment of the mA and/or kV according to patient size, and/or use of iterative reconstruction technique. FINDINGS: LOWER THORAX: Nonspecific partially imaged right lower lobe infiltrate. There is no visible pleural effusion or pneumothorax. Small hiatal hernia. LIVER: Hypoattenuation of the liver compatible with hepatic steatosis. GALLBLADDER AND BILE DUCTS: Distended gallbladder. No calcified gallstones evident. PANCREAS: Unremarkable. Calcifications at the level of the pancreatic tail may be related to vasculature. SPLEEN: Unremarkable. ADRENALS: Unremarkable. KIDNEYS AND URETERS: The kidneys enhance symmetrically. No hydronephrosis or obstructing renal calculus. BLADDER: Under distention of the urinary bladder. REPRODUCTIVE: Uterus is present. APPENDIX: The appendix appears within normal limits of caliber. No secondary signs of acute appendicitis. BOWEL: The stomach is nondistended. Gastric wall appears thickened despite under distension ; correlate clinically for possibility of gastritis. The bowel loops appear within normal limits of caliber without evidence of intestinal obstruction. Diverticulosis without CT evidence of acute diverticulitis. PERITONEUM: Small pelvic free fluid/ inflammatory changes. No definite free air. LYMPH NODES: No bulky lymphadenopathy identified. VASCULATURE: Atherosclerotic calcifications. No aortic aneurysm. BONES: Degenerative changes. OTHER FINDINGS: Heterogeneous enlarged appearance of bilateral rectus musculature with hyperdense focus in the left rectus sheath consistent with acute bleeding (for example, series 3, image [id number]). IMPRESSION: Heterogeneous enlarged appearance of bilateral rectus musculature with hyperdense focus in the left rectus sheath consistent with acute bleeding. Gastric wall appears thickened despite under distension ; correlate clinically for possibility of gastritis. Distended gallbladder. No calcified gallstones evident. Correlate clinically. Right upper quadrant ultrasound may be considered if indicated. Hepatic steatosis. Small pelvic free fluid/ inflammatory changes. Diverticulosis without CT evidence of acute diverticulitis. Nonspecific partially imaged right lower lobe infiltrate. Please refer to CTA chest from earlier the same day for more detailed discussion of chest findings. Small hiatal hernia. Additional incidental findings as above. Findings discussed with the patient's RN Pennie on 12/19/16 at 3:38 p.m.
--- NOTE | 2016-12-19 16:17 | OP ---
PROCEDURE DATE: 12/19/2016 PREOPERATIVE DIAGNOSIS: Dysphagia and possible nasopharyngeal mass. POSTOPERATIVE DIAGNOSIS: Dysphagia and possible nasopharyngeal mass. PROCEDURE: Flexible laryngoscopy. SIGNIFICANT FINDINGS: Erythema, edema of the nasopharynx. PROCEDURE: The patient was placed in a seated position. The flexible laryngoscope was inserted into the nasal cavity, passed into the nasopharynx, oropharynx, hypopharynx. The pharyngeal phillips, base of tongue, vallecula, epiglottis, AE folds, false cords, true cords, arytenoids, pyriform sinuses wer e brought into view, as well as the arytenoid. There was edema and erythema in the nasopharyngeal ar ea. No other masses or lesions were noted. The patient is currently on antibiotics. The patient was told to follow up in the office in 1 week. If edema and erythema of the nasopharynx have not resolved, I will recommend a biopsy of the area. The patient was told that she has to follo w up for a biopsy if the redness has not resolved within the week of antibiotics. The patient agreed . She stated she understood what I was saying and that she will follow up in the office in 1 week in order to follow up on the redness in the nasopharynx. She was also told that if it has not resolved it needs to be biopsied. Julius Ozuna MD cc: [phone] TT: 12/19/2016 16:16:38 dn
--- NOTE | 2016-12-19 16:18 | CP.PCM.PN ---
Subjective - Date & Time of Evaluation Date of Evaluation: 12/19/16 Time of Evaluation: 10:00 - Subjective Subjective: Dr. Garcias service: Patient seen in room. She is complaining of abdominal pain, diarrhea, and lack of appetite. She says her abdominal pain has been happening for a long time but for some reason it is worse today, she thinks because it is due to the shots she has been getting. Objective - Vital Signs/Intake and Output Vital Signs (last 24 hours): Temp Pulse Resp BP Pulse Ox 97.6 F 81 20 126/74 95 12/19/16 08:00 12/19/16 08:00 12/19/16 08:00 12/19/16 08:00 12/19/16 08:00 Intake and Output: 12/19/16 12/19/16 06:59 18:59 Intake Total 200 Balance 200 - Medications Medications: Current Medications Albuterol/Ipratropium (Duoneb 3 Mg/0.5 Mg (3 Ml) Ud) 3 ml INH RQ6 [facility] Last Admin: 12/19/16 13:26 Dose: 3 ml Benztropine Mesylate (Cogentin) 1 mg PO BID [facility] Last Admin: 12/19/16 12:47 Dose: 1 mg Divalproex Sodium (Depakote Dr) 500 mg PO BID [facility] Last Admin: 12/19/16 12:42 Dose: 500 mg Enoxaparin Sodium (Lovenox) 55 mg SC Q12 [facility] Last Admin: 12/19/16 09:49 Dose: 55 mg Ceftriaxone Sodium 1 gm/ (Dextrose) 100 mls @ 50 mls/30 min IVPB DAILY [facility] Last Admin: 12/19/16 09:53 Dose: 50 mls/30 min Azithromycin (Zithromax 500mg In Ns Addvantage) 500 mg in 250 mls @ 167 mls/hr IVPB Q24H [facility] Last Admin: 12/19/16 13:14 Dose: 167 mls/hr Sodium Chloride (Sodium Chloride 0.9%) 1,000 mls @ 100 mls/hr IV .Q10H [facility] Last Admin: 12/19/16 13:48 Dose: 100 mls/hr Potassium Chloride (Potassium Chloride 20 Meq/100 Ml) 20 meq in 100 mls @ 50 mls/hr IVPB ONCE ONE Stop: 12/19/16 18:06 Methylprednisolone (Solu-Medrol) 40 mg IVP Q8 [facility] Last Admin: 12/19/16 13:05 Dose: Not Given Montelukast Sodium (Singulair) 10 mg PO HS [facility] Last Admin: 12/18/16 21:43 Dose: 10 mg Morphine Sulfate (Morphine) 4 mg IVP Q4 PRN PRN Reason: Pain, moderate (4-7) Pantoprazole Sodium (Protonix Inj) 40 mg IVP DAILY [facility] Risperidone (Risperdal Tab) 1 mg PO DAILY [facility] Last Admin: 12/19/16 12:42 Dose: 1 mg Trazodone HCl (Desyrel) 50 mg PO HS PRN PRN Reason: Insomnia - Labs Labs: 12/19/16 11:22 12/19/16 11:22 - Constitutional Appears: Non-toxic, No Acute Distress - Head Exam Head Exam: NORMAL INSPECTION - Respiratory Exam Respiratory Exam: Clear to Ausculation Bilateral. absent: Rhonchi, Wheezes - Cardiovascular Exam Cardiovascular Exam: REGULAR RHYTHM, RRR, +S1, +S2. absent: Gallop, Rubs - GI/Abdominal Exam GI & Abdominal Exam: Soft, Normal Bowel Sounds. absent: Tenderness - Extremities Exam Extremities Exam: Normal Inspection. absent: Pedal Edema - Back Exam Back Exam: NORMAL INSPECTION - Psychiatric Exam Psychiatric exam: Normal Affect, Normal Mood - Skin Skin Exam: Normal Color, Warm Assessment and Plan (1) Pneumonia Assessment & Plan: Continue with IV antibiotiocs, day 4 of IV Rocephin and Zithromax. continue duonebs Q6H scheduled. Status: Acute (2) Abdominal pain Assessment & Plan: CT of the abdomen/pelvis and surgery consult. Hematoma on CT scan. Status: Acute (3) Asthma Assessment & Plan: Continue Solumedrol and Duoneb treatment Status: Acute (4) Thyroid lesion Assessment & Plan: follow up with Dr. Ozuna. Status: Acute (5) Pulmonary embolism Assessment & Plan: Hold theraputic Lovenox due rectus sheath hematoma. Status: Acute (6) History of psychiatric treatment Assessment & Plan: continue her home medications and also consulted psychiatrist, Dr. Angela, help appreciated. Status: Chronic (7) Prophylactic measure Assessment & Plan: 40mg of Protonix daily, hold VTE, SCDS Have added Trazadone prn for sleep Status: Acute
--- NOTE | 2016-12-19 17:40 | CP.PCM.PN ---
Subjective - Date & Time of Evaluation Date of Evaluation: 12/19/16 Time of Evaluation: 17:40 - Subjective Subjective: Pt seen and examined Events overnight Objective - Vital Signs/Intake and Output Vital Signs (last 24 hours): Temp Pulse Resp BP Pulse Ox 97.2 F L 80 20 124/70 95 12/19/16 16:00 12/19/16 16:00 12/19/16 16:00 12/19/16 16:00 12/19/16 16:00 Intake and Output: 12/19/16 12/19/16 06:59 18:59 Intake Total 200 Balance 200 - Medications Medications: Current Medications Albuterol/Ipratropium (Duoneb 3 Mg/0.5 Mg (3 Ml) Ud) 3 ml INH RQ6 [facility] Last Admin: 12/19/16 13:26 Dose: 3 ml Benztropine Mesylate (Cogentin) 1 mg PO BID [facility] Last Admin: 12/19/16 12:47 Dose: 1 mg Divalproex Sodium (Depakote Dr) 500 mg PO BID [facility] Last Admin: 12/19/16 12:42 Dose: 500 mg Enoxaparin Sodium (Lovenox) 55 mg SC Q12 [facility] Last Admin: 12/19/16 09:49 Dose: 55 mg Ceftriaxone Sodium 1 gm/ (Dextrose) 100 mls @ 50 mls/30 min IVPB DAILY [facility] Last Admin: 12/19/16 09:53 Dose: 50 mls/30 min Azithromycin (Zithromax 500mg In Ns Addvantage) 500 mg in 250 mls @ 167 mls/hr IVPB Q24H [facility] Last Admin: 12/19/16 13:14 Dose: 167 mls/hr Sodium Chloride (Sodium Chloride 0.9%) 1,000 mls @ 100 mls/hr IV .Q10H [facility] Last Admin: 12/19/16 13:48 Dose: 100 mls/hr Potassium Chloride (Potassium Chloride 20 Meq/100 Ml) 20 meq in 100 mls @ 50 mls/hr IVPB ONCE ONE Stop: 12/19/16 18:06 Last Admin: 12/19/16 16:48 Dose: 50 mls/hr Methylprednisolone (Solu-Medrol) 40 mg IVP Q8 [facility] Last Admin: 12/19/16 13:05 Dose: Not Given Montelukast Sodium (Singulair) 10 mg PO HS [facility] Last Admin: 12/18/16 21:43 Dose: 10 mg Morphine Sulfate (Morphine) 4 mg IVP Q4 PRN PRN Reason: Pain, moderate (4-7) Last Admin: 12/19/16 16:49 Dose: 4 mg Pantoprazole Sodium (Protonix Inj) 40 mg IVP DAILY [facility] Risperidone (Risperdal Tab) 1 mg PO DAILY [facility] Last Admin: 12/19/16 12:42 Dose: 1 mg Trazodone HCl (Desyrel) 50 mg PO HS PRN PRN Reason: Insomnia - Labs Labs: 12/19/16 11:22 12/19/16 11:22 - Head Exam Head Exam: NORMAL INSPECTION - ENT Exam ENT Exam: Mucous Membranes Moist - Respiratory Exam Respiratory Exam: Decreased Breath Sounds, Rhonchi, Wheezes - Cardiovascular Exam Cardiovascular Exam: REGULAR RHYTHM, +S1, +S2 - GI/Abdominal Exam GI & Abdominal Exam: Soft, Normal Bowel Sounds - Extremities Exam Extremities Exam: Normal Inspection Assessment and Plan - Assessment and Plan (Free Text) Assessment: Asthma Exacerbation PE Pneumonia IV steroids Ceftrioxone/Zithromax Duonebs Lovenox on Hold O2 supplementation Follow CBC
[2016-12-20] MEDS: Sodium Chloride 0.9% 1,000 ML IV SCH ×4 (00:51→19:30)
[2016-12-20] MEDS: Albuterol-Ipratrop 3 mg / 0.5 (3 ml) UD INH SCH ×4 (01:11→20:13)
[2016-12-20] MEDS: MethylPREDNISolone 40 mg Vial IVP SCH ×3 (06:36→21:35)
[2016-12-20 07:54] LABS: BASO % 0.4 % (0.0-2.0); HEMATOCRIT 30.9 % (34.0-47.0); LYMPH # 1.8 K/uL (1.0-4.3); LYMPH % 16.1 % (20.0-40.0); MEAN CELL VOLUME 89.2 fL (81.0-99.0); MEAN CORPUSCULAR HGB CONC 33.6 g/dL (33.0-37.0); MONO # 1.1 K/uL (0.0-0.8); MONO % 10.4 % (0.0-10.0); RED CELL DISTRIBUTION WIDTH 13.4 % (11.5-14.5)
[2016-12-20 08:21] LABS: CHLORIDE 104 mmol/L (98-107); SODIUM 139 mmol/L (132-148)
[2016-12-20 08:22] LABS: POTASSIUM 4.3 mmol/L (3.6-5.2)
[2016-12-20 08:24] LABS: ALKALINE PHOSPHATASE 30 U/L (38-126); ALT/SGPT 30 U/L (9-52); AST/SGOT 41 U/L (14-36); BILIRUBIN,TOTAL 0.5 mg/dL (0.2-1.3); BLOOD UREA NITROGEN 11 mg/dL (7-17); CARBON DIOXIDE 26 mmol/L (22-30); GFR AFRICAN-AMERICAN > 60; GLUCOSE,RANDOM 111 mg/dL (65-105); TOTAL PROTEIN 6.2 g/dL (6.3-8.3)
[2016-12-20 08:25] LABS: CALCIUM 8.5 mg/dl (8.6-10.4)
--- NOTE | 2016-12-20 09:10 | CP.PCM.PN ---
Subjective - Date & Time of Evaluation Date of Evaluation: 12/20/16 Time of Evaluation: 10:00 - Subjective Subjective: Dr. Pena service: patient seen and examined with dr. pena medical attending. She is feeling better with resolved abdominal pain. She also says her diarrhea has improved and she is tolerating diet with no nausea, vomiting, fever, or chills. Objective - Vital Signs/Intake and Output Vital Signs (last 24 hours): Temp Pulse Resp BP Pulse Ox 97.5 F L 84 20 137/79 95 12/19/16 23:33 12/19/16 23:33 12/19/16 23:33 12/19/16 23:33 12/19/16 23:33 Intake and Output: 12/20/16 12/20/16 06:59 18:59 Intake Total 1600 80 Output Total 1 Balance 1599 80 - Medications Medications: Current Medications Albuterol/Ipratropium (Duoneb 3 Mg/0.5 Mg (3 Ml) Ud) 3 ml INH RQ6 [facility] Last Admin: 12/20/16 08:09 Dose: 3 ml Benztropine Mesylate (Cogentin) 1 mg PO BID [facility] Last Admin: 12/19/16 18:00 Dose: Not Given Divalproex Sodium (Depakote Dr) 500 mg PO BID [facility] Last Admin: 12/19/16 22:36 Dose: 500 mg Enoxaparin Sodium (Lovenox) 55 mg SC Q12 [facility] Last Admin: 12/19/16 09:49 Dose: 55 mg Ceftriaxone Sodium 1 gm/ (Dextrose) 100 mls @ 50 mls/30 min IVPB DAILY [facility] Last Admin: 12/19/16 09:53 Dose: 50 mls/30 min Azithromycin (Zithromax 500mg In Ns Addvantage) 500 mg in 250 mls @ 167 mls/hr IVPB Q24H [facility] Last Admin: 12/19/16 13:14 Dose: 167 mls/hr Sodium Chloride (Sodium Chloride 0.9%) 1,000 mls @ 100 mls/hr IV .Q10H [facility] Last Admin: 12/20/16 06:37 Dose: 100 mls/hr Methylprednisolone (Solu-Medrol) 40 mg IVP Q8 [facility] Last Admin: 12/20/16 06:36 Dose: 40 mg Montelukast Sodium (Singulair) 10 mg PO HS [facility] Last Admin: 12/19/16 22:36 Dose: 10 mg Morphine Sulfate (Morphine) 4 mg IVP Q4 PRN PRN Reason: Pain, moderate (4-7) Last Admin: 12/19/16 16:49 Dose: 4 mg Pantoprazole Sodium (Protonix Inj) 40 mg IVP DAILY [facility] Risperidone (Risperdal Tab) 1 mg PO DAILY [facility] Last Admin: 12/19/16 12:42 Dose: 1 mg Trazodone HCl (Desyrel) 50 mg PO HS PRN PRN Reason: Insomnia - Labs Labs: 12/20/16 07:41 12/20/16 07:41 - Constitutional Appears: Non-toxic, No Acute Distress - Head Exam Head Exam: NORMAL INSPECTION - Eye Exam Eye Exam: Normal appearance - ENT Exam ENT Exam: Normal Exam - Respiratory Exam Respiratory Exam: Clear to Ausculation Bilateral. absent: Rales, Rhonchi, Wheezes - Cardiovascular Exam Cardiovascular Exam: REGULAR RHYTHM, RRR, +S1, +S2. absent: Gallop, Rubs - GI/Abdominal Exam GI & Abdominal Exam: Soft, Normal Bowel Sounds. absent: Tenderness - Extremities Exam Extremities Exam: Normal Inspection - Back Exam Back Exam: NORMAL INSPECTION - Neurological Exam Neurological Exam: Alert - Psychiatric Exam Psychiatric exam: Normal Affect, Normal Mood - Skin Skin Exam: Pallor, Warm. absent: Normal Color Assessment and Plan - Assessment and Plan (Free Text) Assessment: (1) Pneumonia Assessment & Plan: 12/20: Day 5 of IV antibiotics, continue duoneb treatment, can be discharged on PO antibiotics. Continue with IV antibiotiocs, day 4 of IV Rocephin and Zithromax. continue duonebs Q6H scheduled. Status: Acute (2) Abdominal pain Assessment & Plan: 12/20: Official read on CT from yesterday showed a bleed, IR consulted per Surgery's team consult. She went for an angiogram with Dr. Thao which showed resolved epigastric bleed, continue to hold theraputic Lovenox. Her Hbg dropped this morning to 10.4. Will check cbc tomorrow, discharge her tomorrow if stable. CT of the abdomen/pelvis and surgery consult. Hematoma on CT scan. Status: Acute (3) Anemia 12/20: Most likely secondary to GI bleed that resolved, re check cbc in the am if stable will discharge tomorrow. (4) Asthma Assessment & Plan: Continue Solumedrol and Duoneb treatment Status: Acute (5) Thyroid lesion Assessment & Plan: 12/20: Patient will need to follow up with Dr. Ozuna as out patient follow up with Dr. Ozuna. Status: Acute (6) Pulmonary embolism Assessment & Plan: 12/20: Patient may need repeat CT scan in 1 month to see if she has a PE. Hold theraputic Lovenox due rectus sheath hematoma. Status: Acute (7) History of psychiatric treatment Assessment & Plan: continue her home medications and also consulted psychiatrist, Dr. Angela, help appreciated. Status: Chronic (8) Prophylactic measure Assessment & Plan: 40mg of Protonix daily, hold VTE, SCDS Have added Trazadone prn for sleep Status: Acute
[2016-12-20] MEDS: Divalproex 500 mg DR Tab PO SCH ×2 (09:43→17:56)
[2016-12-20] MEDS: cefTRIAXone IV 1 gm in Dextros 1 GM in Dextrose 5% In Water 50 ML IVPB SCH (09:45)
--- NOTE | 2016-12-20 11:09 | CP.PCM.PN ---
Subjective - Date & Time of Evaluation Date of Evaluation: 12/20/16 Time of Evaluation: 08:40 - Subjective Subjective: clinically same Objective - Vital Signs/Intake and Output Vital Signs (last 24 hours): Temp Pulse Resp BP Pulse Ox 97.5 F L 84 20 137/79 95 12/19/16 23:33 12/19/16 23:33 12/19/16 23:33 12/19/16 23:33 12/19/16 23:33 Intake and Output: 12/20/16 12/20/16 06:59 18:59 Intake Total 1600 80 Output Total 1 Balance 1599 80 - Medications Medications: Current Medications Albuterol/Ipratropium (Duoneb 3 Mg/0.5 Mg (3 Ml) Ud) 3 ml INH RQ6 [facility] Last Admin: 12/20/16 08:09 Dose: 3 ml Benztropine Mesylate (Cogentin) 1 mg PO BID [facility] Last Admin: 12/20/16 09:43 Dose: Not Given Divalproex Sodium (Depakote Dr) 500 mg PO BID [facility] Last Admin: 12/20/16 09:43 Dose: Not Given Enoxaparin Sodium (Lovenox) 55 mg SC Q12 [facility] Last Admin: 12/19/16 09:49 Dose: 55 mg Ceftriaxone Sodium 1 gm/ (Dextrose) 100 mls @ 50 mls/30 min IVPB DAILY [facility] Last Admin: 12/20/16 09:45 Dose: 50 mls/30 min Azithromycin (Zithromax 500mg In Ns Addvantage) 500 mg in 250 mls @ 167 mls/hr IVPB Q24H [facility] Last Admin: 12/19/16 13:14 Dose: 167 mls/hr Sodium Chloride (Sodium Chloride 0.9%) 1,000 mls @ 100 mls/hr IV .Q10H [facility] Last Admin: 12/20/16 09:44 Dose: Not Given Methylprednisolone (Solu-Medrol) 40 mg IVP Q8 [facility] Last Admin: 12/20/16 06:36 Dose: 40 mg Montelukast Sodium (Singulair) 10 mg PO HS [facility] Last Admin: 12/19/16 22:36 Dose: 10 mg Morphine Sulfate (Morphine) 4 mg IVP Q4 PRN PRN Reason: Pain, moderate (4-7) Last Admin: 12/19/16 16:49 Dose: 4 mg Pantoprazole Sodium (Protonix Inj) 40 mg IVP DAILY [facility] Last Admin: 12/20/16 09:43 Dose: Not Given Risperidone (Risperdal Tab) 1 mg PO DAILY [facility] Last Admin: 12/19/16 12:42 Dose: 1 mg Trazodone HCl (Desyrel) 50 mg PO HS PRN PRN Reason: Insomnia - Labs Labs: 12/20/16 07:41 12/20/16 07:41 - Constitutional Appears: Well - Head Exam Head Exam: ATRAUMATIC, NORMAL INSPECTION, NORMOCEPHALIC - Eye Exam Eye Exam: EOMI, Normal appearance, PERRL Pupil Exam: NORMAL ACCOMODATION, PERRL - ENT Exam ENT Exam: Mucous Membranes Moist, Normal Exam - Neck Exam Neck Exam: Full ROM, Normal Inspection. absent: Lymphadenopathy - Respiratory Exam Respiratory Exam: Decreased Breath Sounds - Cardiovascular Exam Cardiovascular Exam: REGULAR RHYTHM, +S1, +S2 - GI/Abdominal Exam GI & Abdominal Exam: Soft, Diminished Bowel Sounds - Rectal Exam Rectal Exam: Deferred
--- NOTE | 2016-12-20 12:02 | CARD ---
APPROVED REPORT EKG Measurement Heart [id number] ID [id number] <Conclusion> Sinus tachycardia Otherwise normal ECG
[2016-12-20] MEDS ORDERED: Iodixanol 320 MG/ML 100 ML BOTTLE IV ONE (12:17)
[2016-12-20] MEDS ORDERED: Midazolam 2 MG/2 ML VIAL ONE (12:21)
--- NOTE | 2016-12-20 12:43 | PCM.SURG1 ---
Surgeon's Initial Post Op Note - Surgeon's Notes Surgeon: Garry Thao MD Can Stacker: None Type of Anesthesia: Moderate Sedation{RN} Pre-Operative Diagnosis: Rectus muscle bleed Operative Findings: Left and right inferior epigastric artery angiogram did not show any evidence of bleeding. Post-Operative Diagnosis: Resolved inferior epigastric artery bleed Operation Performed: Selective inferior epigastric artery angiogram. Specimen/Specimens Removed: NONE Estimated Blood Loss: EBL {In ML}: 5 Blood Products Given: N/A Drains Used: No Drains Post-Op Condition: Fair Date of Surgery/Procedure: 12/20/16 Time of Surgery/Procedure: 12:35
[2016-12-20] MEDS: Azithromycin 500mg/250ML NS 500 MG/250 ML BAG IVPB SCH (13:56)
--- NOTE | 2016-12-20 13:59 | CP.PCM.PN ---
Subjective - Date & Time of Evaluation Date of Evaluation: 12/20/16 Time of Evaluation: 13:59 - Subjective Subjective: Pt seen and examined s/p drainage of inferior rectus sheet hematoma and angiogram Lying comfortably in bed Objective - Vital Signs/Intake and Output Vital Signs (last 24 hours): Temp Pulse Resp BP Pulse Ox 97.5 F L 84 20 137/79 95 12/19/16 23:33 12/19/16 23:33 12/19/16 23:33 12/19/16 23:33 12/19/16 23:33 Intake and Output: 12/20/16 12/20/16 06:59 18:59 Intake Total 1600 80 Output Total 1 Balance 1599 80 - Medications Medications: Current Medications Albuterol/Ipratropium (Duoneb 3 Mg/0.5 Mg (3 Ml) Ud) 3 ml INH RQ6 [facility] Last Admin: 12/20/16 13:59 Dose: Not Given Benztropine Mesylate (Cogentin) 1 mg PO BID [facility] Last Admin: 12/20/16 09:43 Dose: Not Given Divalproex Sodium (Depakote Dr) 500 mg PO BID [facility] Last Admin: 12/20/16 09:43 Dose: Not Given Enoxaparin Sodium (Lovenox) 55 mg SC Q12 [facility] Last Admin: 12/19/16 09:49 Dose: 55 mg Ceftriaxone Sodium 1 gm/ (Dextrose) 100 mls @ 50 mls/30 min IVPB DAILY [facility] Last Admin: 12/20/16 09:45 Dose: 50 mls/30 min Azithromycin (Zithromax 500mg In Ns Addvantage) 500 mg in 250 mls @ 167 mls/hr IVPB Q24H [facility] Last Admin: 12/20/16 13:56 Dose: 167 mls/hr Sodium Chloride (Sodium Chloride 0.9%) 1,000 mls @ 100 mls/hr IV .Q10H [facility] Last Admin: 12/20/16 09:44 Dose: Not Given Methylprednisolone (Solu-Medrol) 40 mg IVP Q8 [facility] Last Admin: 12/20/16 13:58 Dose: 40 mg Montelukast Sodium (Singulair) 10 mg PO HS [facility] Last Admin: 12/19/16 22:36 Dose: 10 mg Morphine Sulfate (Morphine) 4 mg IVP Q4 PRN PRN Reason: Pain, moderate (4-7) Last Admin: 12/19/16 16:49 Dose: 4 mg Pantoprazole Sodium (Protonix Inj) 40 mg IVP DAILY [facility] Last Admin: 12/20/16 09:43 Dose: Not Given Risperidone (Risperdal Tab) 1 mg PO BID [facility] Trazodone HCl (Desyrel) 50 mg PO HS PRN PRN Reason: Insomnia - Labs Labs: 12/20/16 07:41 12/20/16 07:41 - Head Exam Head Exam: NORMAL INSPECTION - ENT Exam ENT Exam: Mucous Membranes Moist - Respiratory Exam Respiratory Exam: Prolonged Expiratory Phase, Wheezes - Cardiovascular Exam Cardiovascular Exam: REGULAR RHYTHM, +S1, +S2 - GI/Abdominal Exam GI & Abdominal Exam: Soft, Normal Bowel Sounds - Extremities Exam Extremities Exam: Normal Inspection Assessment and Plan - Assessment and Plan (Free Text) Assessment: Asthma Exacerbation PE Pneumonia IV steroids Ceftrioxone/Zithromax Duonebs d/c lovenox O2 supplementation Follow CBC Given recent bleed pt is not a candidate for anticoagulation at present Will order LE doppler and if they are negative will recommend observation If LE doppler is positive pt will need IVC filter
--- NOTE | 2016-12-20 17:54 | CP.PCM.PN ---
<Tyson Cobb - Last Filed: 12/20/16 17:51> Subjective - Date & Time of Evaluation Date of Evaluation: 12/20/16 Time of Evaluation: 07:00 - Subjective Subjective: SURGERY PROGRESS NOTE FOR DR. QUIJANO 61F seen and examined at bedside. Patient states her abdominal pain is decreased. denies events overnight. Objective - Vital Signs/Intake and Output Vital Signs (last 24 hours): Temp Pulse Resp BP Pulse Ox 97.5 F L 75 20 154/83 H 99 12/20/16 16:00 12/20/16 16:00 12/20/16 16:00 12/20/16 16:00 12/20/16 16:00 Intake and Output: 12/20/16 12/20/16 06:59 18:59 Intake Total 1600 80 Output Total 1 Balance 1599 80 - Medications Medications: Current Medications Albuterol/Ipratropium (Duoneb 3 Mg/0.5 Mg (3 Ml) Ud) 3 ml INH RQ6 [facility] Last Admin: 12/20/16 13:59 Dose: Not Given Benztropine Mesylate (Cogentin) 1 mg PO BID [facility] Last Admin: 12/20/16 09:43 Dose: Not Given Divalproex Sodium (Depakote Dr) 500 mg PO BID [facility] Last Admin: 12/20/16 09:43 Dose: Not Given Enoxaparin Sodium (Lovenox) 55 mg SC Q12 [facility] Last Admin: 12/19/16 09:49 Dose: 55 mg Ceftriaxone Sodium 1 gm/ (Dextrose) 100 mls @ 50 mls/30 min IVPB DAILY [facility] Last Admin: 12/20/16 09:45 Dose: 50 mls/30 min Azithromycin (Zithromax 500mg In Ns Addvantage) 500 mg in 250 mls @ 167 mls/hr IVPB Q24H [facility] Last Admin: 12/20/16 13:56 Dose: 167 mls/hr Sodium Chloride (Sodium Chloride 0.9%) 1,000 mls @ 100 mls/hr IV .Q10H [facility] Last Admin: 12/20/16 09:44 Dose: Not Given Methylprednisolone (Solu-Medrol) 40 mg IVP Q8 [facility] Last Admin: 12/20/16 13:58 Dose: 40 mg Montelukast Sodium (Singulair) 10 mg PO HS [facility] Last Admin: 12/19/16 22:36 Dose: 10 mg Morphine Sulfate (Morphine) 4 mg IVP Q4 PRN PRN Reason: Pain, moderate (4-7) Last Admin: 12/19/16 16:49 Dose: 4 mg Pantoprazole Sodium (Protonix Inj) 40 mg IVP DAILY [facility] Last Admin: 12/20/16 09:43 Dose: Not Given Risperidone (Risperdal Tab) 1 mg PO BID [facility] Trazodone HCl (Desyrel) 50 mg PO HS PRN PRN Reason: Insomnia - Labs Labs: 12/20/16 07:41 12/20/16 07:41 PT 11.7 SECONDS (9.7-12.2) 12/20/16 14:45 INR 1.0 12/20/16 14:45 APTT 24 SECONDS (21-34) 12/20/16 14:45 - Constitutional Appears: Non-toxic, No Acute Distress - Respiratory Exam Respiratory Exam: Clear to Ausculation Bilateral, NORMAL BREATHING PATTERN - Cardiovascular Exam Cardiovascular Exam: REGULAR RHYTHM, +S1, +S2 - GI/Abdominal Exam GI & Abdominal Exam: Soft. absent: Distended, Firm, Guarding, Rigid, Tenderness , Rebound Assessment and Plan - Assessment and Plan (Free Text) Assessment: 61F with rectus hematoma IR drained hematom and study shows no further bleed - no further surgical intervention needed Further recs discuss with Attending Tommy Cobb PGY1 <Sudhir Quijano - Last Filed: 12/22/16 14:32> Objective - Vital Signs/Intake and Output Vital Signs (last 24 hours): Temp Pulse Resp BP Pulse Ox 97.5 F L 76 20 146/78 96 12/21/16 16:00 12/21/16 16:00 12/21/16 07:42 12/21/16 16:00 12/21/16 07:42 - Labs Labs: 12/21/16 07:33 12/21/16 07:33 PT 11.7 SECONDS (9.7-12.2) 12/20/16 14:45 INR 1.0 12/20/16 14:45 APTT 24 SECONDS (21-34) 12/20/16 14:45 Attending/Attestation - Attestation I have personally seen and examined this patient.: Yes I have fully participated in the care of the patient.: Yes I have reviewed all pertinent clinical information, including history, physical exam and plan: Yes Notes (Text): 12/22/16 14:31 Pt was seen and examined at bedside on 12/20/16 Agree with above note and assessment Pt with Abdominal Pain and Rectus muscles bleed No need for any surgical intervention at present. Plan d.w pt in detail Risk and benefit explained in detail
--- NOTE | 2016-12-20 20:16 | CP.PCM.PN ---
Subjective - Date & Time of Evaluation Date of Evaluation: 12/20/16 Time of Evaluation: 13:00 - Subjective Subjective: IR managed to stop bleed rectally on treatment for asthma Objective - Vital Signs/Intake and Output Vital Signs (last 24 hours): Temp Pulse Resp BP Pulse Ox 97.5 F L 75 20 154/83 H 99 12/20/16 16:00 12/20/16 16:00 12/20/16 16:00 12/20/16 16:00 12/20/16 16:00 Intake and Output: 12/20/16 12/21/16 18:59 06:59 Intake Total 80 Balance 80 - Medications Medications: Current Medications Albuterol/Ipratropium (Duoneb 3 Mg/0.5 Mg (3 Ml) Ud) 3 ml INH RQ6 [facility] Last Admin: 12/20/16 20:13 Dose: Not Given Benztropine Mesylate (Cogentin) 1 mg PO BID [facility] Last Admin: 12/20/16 17:56 Dose: 1 mg Divalproex Sodium (Depakote Dr) 500 mg PO BID [facility] Last Admin: 12/20/16 17:56 Dose: 500 mg Enoxaparin Sodium (Lovenox) 55 mg SC Q12 [facility] Last Admin: 12/19/16 09:49 Dose: 55 mg Ceftriaxone Sodium 1 gm/ (Dextrose) 100 mls @ 50 mls/30 min IVPB DAILY [facility] Last Admin: 12/20/16 09:45 Dose: 50 mls/30 min Azithromycin (Zithromax 500mg In Ns Addvantage) 500 mg in 250 mls @ 167 mls/hr IVPB Q24H [facility] Last Admin: 12/20/16 13:56 Dose: 167 mls/hr Sodium Chloride (Sodium Chloride 0.9%) 1,000 mls @ 100 mls/hr IV .Q10H [facility] Last Admin: 12/20/16 09:44 Dose: Not Given Methylprednisolone (Solu-Medrol) 40 mg IVP Q8 [facility] Last Admin: 12/20/16 13:58 Dose: 40 mg Montelukast Sodium (Singulair) 10 mg PO HS [facility] Last Admin: 12/19/16 22:36 Dose: 10 mg Morphine Sulfate (Morphine) 4 mg IVP Q4 PRN PRN Reason: Pain, moderate (4-7) Last Admin: 12/19/16 16:49 Dose: 4 mg Pantoprazole Sodium (Protonix Inj) 40 mg IVP DAILY [facility] Last Admin: 12/20/16 09:43 Dose: Not Given Risperidone (Risperdal Tab) 1 mg PO BID [facility] Last Admin: 12/20/16 17:57 Dose: 1 mg Trazodone HCl (Desyrel) 50 mg PO HS PRN PRN Reason: Insomnia - Labs Labs: 12/20/16 07:41 12/20/16 07:41 PT 11.7 SECONDS (9.7-12.2) 12/20/16 14:45 INR 1.0 12/20/16 14:45 APTT 24 SECONDS (21-34) 12/20/16 14:45 - Constitutional Appears: Non-toxic - Head Exam Head Exam: ATRAUMATIC - Eye Exam Eye Exam: EOMI - ENT Exam ENT Exam: Mucous Membranes Moist - Neck Exam Neck Exam: absent: Lymphadenopathy, Thyromegaly - Respiratory Exam Respiratory Exam: Clear to Ausculation Bilateral. absent: Rales, Wheezes - Cardiovascular Exam Cardiovascular Exam: REGULAR RHYTHM, Murmur - GI/Abdominal Exam GI & Abdominal Exam: Normal Bowel Sounds. absent: Organomegaly - Rectal Exam Rectal Exam: Deferred - Extremities Exam Extremities Exam: Normal Capillary Refill. absent: Calf Tenderness - Neurological Exam Neurological Exam: Alert, Oriented x3 - Psychiatric Exam Psychiatric exam: Normal Mood - Skin Skin Exam: Dry Assessment and Plan (1) Asthma attack Status: Acute (2) Hypoxia Status: Acute
[2016-12-21 00:45] VITALS: O2SAT 96
[2016-12-21] MEDS: Sodium Chloride 0.9% 1,000 ML IV SCH ×2 (01:00→13:55)
[2016-12-21] MEDS: Albuterol-Ipratrop 3 mg / 0.5 (3 ml) UD INH SCH ×3 (01:21→13:20)
[2016-12-21] MEDS: MethylPREDNISolone 40 mg Vial IVP SCH ×2 (05:38→13:50)
[2016-12-21 07:58] LABS: BASO % 0.1 % (0.0-2.0); HEMATOCRIT 31.9 % (34.0-47.0); LYMPH # 1.6 K/uL (1.0-4.3); MEAN CELL VOLUME 88.9 fL (81.0-99.0); MEAN CORPUSCULAR HEMOGLOBIN 29.5 pg (27.0-31.0); MEAN CORPUSCULAR HGB CONC 33.2 g/dL (33.0-37.0); MONO # 0.8 K/uL (0.0-0.8); MONO % 7.1 % (0.0-10.0); RED CELL DISTRIBUTION WIDTH 13.1 % (11.5-14.5); WHITE BLOOD COUNT 11.5 K/uL (4.8-10.8)
[2016-12-21 08:17] LABS: CHLORIDE 98 mmol/L (98-107); POTASSIUM 3.7 mmol/L (3.6-5.2); SODIUM 134 mmol/L (132-148)
[2016-12-21 08:19] LABS: BILIRUBIN,TOTAL 0.5 mg/dL (0.2-1.3); GFR AFRICAN-AMERICAN > 60
[2016-12-21 08:20] LABS: ALB/GLOB RATIO 0.8 (1.0-2.1); ALKALINE PHOSPHATASE 37 U/L (38-126); ALT/SGPT 34 U/L (9-52); AST/SGOT 42 U/L (14-36); BLOOD UREA NITROGEN 12 mg/dL (7-17); CARBON DIOXIDE 27 mmol/L (22-30); GLUCOSE,RANDOM 101 mg/dL (65-105); PHOSPHOROUS 2.9 mg/dL (2.5-4.5); TOTAL PROTEIN 6.3 g/dL (6.3-8.3)
[2016-12-21 08:21] LABS: CALCIUM 8.4 mg/dl (8.6-10.4); MAGNESIUM 1.9 mg/dL (1.6-2.3)
[2016-12-21] MEDS: cefTRIAXone IV 1 gm in Dextros 1 GM in Dextrose 5% In Water 50 ML IVPB SCH (09:39)
[2016-12-21] MEDS: Divalproex 500 mg DR Tab PO SCH ×2 (09:39→17:11)
[2016-12-21] MEDS: Azithromycin 500mg/250ML NS 500 MG/250 ML BAG IVPB SCH (13:51)
--- NOTE | 2016-12-21 14:38 | CP.PCM.PN ---
Subjective - Date & Time of Evaluation Date of Evaluation: 12/21/16 Time of Evaluation: 09:05 - Subjective Subjective: PGY2 Medicine Note - Dr. Charles Garcias's service: Patient seen and examined at bedside this AM. Patient reports improving cough. Patient denies fever, chills, chest pain. Objective - Vital Signs/Intake and Output Vital Signs (last 24 hours): Temp Pulse Resp BP Pulse Ox 97.2 F L 71 20 162/80 H 96 12/21/16 07:42 12/21/16 07:42 12/21/16 07:42 12/21/16 07:42 12/21/16 07:42 Intake and Output: 12/21/16 12/21/16 06:59 18:59 Intake Total 1920 Balance 1920 - Medications Medications: Current Medications Albuterol/Ipratropium (Duoneb 3 Mg/0.5 Mg (3 Ml) Ud) 3 ml INH RQ6 [facility] Last Admin: 12/21/16 13:20 Dose: Not Given Benztropine Mesylate (Cogentin) 1 mg PO BID [facility] Last Admin: 12/21/16 09:38 Dose: 1 mg Divalproex Sodium (Depakote Dr) 500 mg PO BID [facility] Last Admin: 12/21/16 09:39 Dose: 500 mg Enoxaparin Sodium (Lovenox) 55 mg SC Q12 [facility] Last Admin: 12/19/16 09:49 Dose: 55 mg Ceftriaxone Sodium 1 gm/ (Dextrose) 100 mls @ 50 mls/30 min IVPB DAILY [facility] Last Admin: 12/21/16 09:39 Dose: 50 mls/30 min Azithromycin (Zithromax 500mg In Ns Addvantage) 500 mg in 250 mls @ 167 mls/hr IVPB Q24H [facility] Last Admin: 12/21/16 13:51 Dose: 167 mls/hr Sodium Chloride (Sodium Chloride 0.9%) 1,000 mls @ 100 mls/hr IV .Q10H [facility] Last Admin: 12/21/16 13:55 Dose: 100 mls/hr Methylprednisolone (Solu-Medrol) 40 mg IVP Q8 [facility] Last Admin: 12/21/16 13:50 Dose: 40 mg Montelukast Sodium (Singulair) 10 mg PO HS [facility] Last Admin: 12/20/16 21:35 Dose: 10 mg Morphine Sulfate (Morphine) 4 mg IVP Q4 PRN PRN Reason: Pain, moderate (4-7) Last Admin: 12/19/16 16:49 Dose: 4 mg Pantoprazole Sodium (Protonix Inj) 40 mg IVP DAILY [facility] Last Admin: 12/21/16 09:37 Dose: 40 mg Risperidone (Risperdal Tab) 1 mg PO BID [facility] Last Admin: 12/21/16 09:38 Dose: 1 mg Trazodone HCl (Desyrel) 50 mg PO HS PRN PRN Reason: Insomnia - Labs Labs: 12/21/16 07:33 12/21/16 07:33 PT 11.7 SECONDS (9.7-12.2) 12/20/16 14:45 INR 1.0 12/20/16 14:45 APTT 24 SECONDS (21-34) 12/20/16 14:45 - Constitutional Appears: Non-toxic, No Acute Distress - Head Exam Head Exam: NORMAL INSPECTION - Eye Exam Eye Exam: EOMI - ENT Exam ENT Exam: Mucous Membranes Moist - Respiratory Exam Respiratory Exam: Rhonchi, NORMAL BREATHING PATTERN. absent: Accessory Muscle Use, Respiratory Distress - Cardiovascular Exam Cardiovascular Exam: REGULAR RHYTHM, +S1, +S2. absent: Gallop, Rubs - GI/Abdominal Exam GI & Abdominal Exam: Soft, Normal Bowel Sounds. absent: Tenderness - Extremities Exam Extremities Exam: absent: Pedal Edema - Neurological Exam Neurological Exam: Alert, Awake, Oriented x3 - Psychiatric Exam Psychiatric exam: Normal Affect, Normal Mood - Skin Skin Exam: Normal Color, Warm Assessment and Plan - Assessment and Plan (Free Text) Assessment: (1) Pneumonia Assessment & Plan: 12/21: D/C home with PO Levaquin for 5 days 12/20: Day 5 of IV antibiotics, continue duoneb treatment, can be discharged on PO antibiotics. Continue with IV antibiotiocs, day 4 of IV Rocephin and Zithromax. continue duonebs Q6H scheduled. Status: Acute (2) Abdominal pain Assessment & Plan: 12/21: bleed resolved 12/20: Official read on CT from yesterday showed a bleed, IR consulted per Surgery's team consult. She went for an angiogram with Dr. Thao which showed resolved epigastric bleed, continue to hold theraputic Lovenox. Her Hbg dropped this morning to 10.4. Will check cbc tomorrow, discharge her tomorrow if stable. CT of the abdomen/pelvis and surgery consult. Hematoma on CT scan. Status: Acute (3) Anemia 12/21: Hgb 10.6 stable 12/20: Most likely secondary to GI bleed that resolved, re check cbc in the am if stable will discharge tomorrow. (4) Asthma Assessment & Plan: Continue Solumedrol and Duoneb treatment Status: Acute (5) Thyroid lesion Assessment & Plan: 12/21: Patient will need to follow up with Dr. Ozuna as out patient follow up with Dr. Ozuna. Status: Acute (6) Pulmonary embolism Assessment & Plan: 12/21: Patient may need repeat CT scan in 1 month to see if she has a PE. Hold theraputic Lovenox due rectus sheath hematoma. Status: Acute (7) History of psychiatric treatment Assessment & Plan: continue her home medications and also consulted psychiatrist, Dr. Angela, help appreciated. Status: Chronic (8) Prophylactic measure Assessment & Plan: 40mg of Protonix daily, hold VTE, SCDS Have added Trazadone prn for sleep Status: Acute
--- NOTE | 2016-12-21 15:20 | CP.PCM.PN ---
Subjective - Date & Time of Evaluation Date of Evaluation: 12/21/16 Time of Evaluation: 14:00 - Subjective Subjective: No further bleed, improved shortness of breath on treatment of asthma. Objective - Vital Signs/Intake and Output Vital Signs (last 24 hours): Temp Pulse Resp BP Pulse Ox 97.2 F L 71 20 162/80 H 96 12/21/16 07:42 12/21/16 07:42 12/21/16 07:42 12/21/16 07:42 12/21/16 07:42 Intake and Output: 12/21/16 12/21/16 06:59 18:59 Intake Total 1920 Balance 1920 - Medications Medications: Current Medications Albuterol/Ipratropium (Duoneb 3 Mg/0.5 Mg (3 Ml) Ud) 3 ml INH RQ6 [facility] Last Admin: 12/21/16 13:20 Dose: Not Given Benztropine Mesylate (Cogentin) 1 mg PO BID [facility] Last Admin: 12/21/16 09:38 Dose: 1 mg Divalproex Sodium (Depakote Dr) 500 mg PO BID [facility] Last Admin: 12/21/16 09:39 Dose: 500 mg Enoxaparin Sodium (Lovenox) 55 mg SC Q12 [facility] Last Admin: 12/19/16 09:49 Dose: 55 mg Ceftriaxone Sodium 1 gm/ (Dextrose) 100 mls @ 50 mls/30 min IVPB DAILY [facility] Last Admin: 12/21/16 09:39 Dose: 50 mls/30 min Azithromycin (Zithromax 500mg In Ns Addvantage) 500 mg in 250 mls @ 167 mls/hr IVPB Q24H [facility] Last Admin: 12/21/16 13:51 Dose: 167 mls/hr Sodium Chloride (Sodium Chloride 0.9%) 1,000 mls @ 100 mls/hr IV .Q10H [facility] Last Admin: 12/21/16 13:55 Dose: 100 mls/hr Methylprednisolone (Solu-Medrol) 40 mg IVP Q8 [facility] Last Admin: 12/21/16 13:50 Dose: 40 mg Montelukast Sodium (Singulair) 10 mg PO HS [facility] Last Admin: 12/20/16 21:35 Dose: 10 mg Morphine Sulfate (Morphine) 4 mg IVP Q4 PRN PRN Reason: Pain, moderate (4-7) Last Admin: 12/19/16 16:49 Dose: 4 mg Pantoprazole Sodium (Protonix Inj) 40 mg IVP DAILY [facility] Last Admin: 12/21/16 09:37 Dose: 40 mg Risperidone (Risperdal Tab) 1 mg PO BID [facility] Last Admin: 12/21/16 09:38 Dose: 1 mg Trazodone HCl (Desyrel) 50 mg PO HS PRN PRN Reason: Insomnia - Labs Labs: 12/21/16 07:33 12/21/16 07:33 PT 11.7 SECONDS (9.7-12.2) 12/20/16 14:45 INR 1.0 12/20/16 14:45 APTT 24 SECONDS (21-34) 12/20/16 14:45 - Constitutional Appears: Non-toxic - Head Exam Head Exam: ATRAUMATIC - Eye Exam Eye Exam: EOMI - ENT Exam ENT Exam: Mucous Membranes Moist - Neck Exam Neck Exam: absent: Lymphadenopathy, Thyromegaly - Respiratory Exam Respiratory Exam: Clear to Ausculation Bilateral, Rhonchi. absent: Rales - Cardiovascular Exam Cardiovascular Exam: REGULAR RHYTHM, Murmur - GI/Abdominal Exam GI & Abdominal Exam: Normal Bowel Sounds. absent: Organomegaly - Rectal Exam Rectal Exam: Deferred - Extremities Exam Extremities Exam: Normal Capillary Refill. absent: Calf Tenderness - Neurological Exam Neurological Exam: Alert, Oriented x3 - Psychiatric Exam Psychiatric exam: Normal Mood - Skin Skin Exam: Dry Assessment and Plan (1) Asthma attack Status: Acute (2) Hypoxia Status: Acute
[2016-12-21 16:48] VITALS: BP 146/78; PULSE 76; TEMP 97.5
--- NOTE | 2016-12-21 17:14 | CP.PCM.PN ---
Subjective - Date & Time of Evaluation Date of Evaluation: 12/21/16 Time of Evaluation: 08:00 - Subjective Subjective: clinically same Objective - Vital Signs/Intake and Output Vital Signs (last 24 hours): Temp Pulse Resp BP Pulse Ox 97.5 F L 76 20 146/78 96 12/21/16 16:00 12/21/16 16:00 12/21/16 07:42 12/21/16 16:00 12/21/16 07:42 Intake and Output: 12/21/16 12/21/16 06:59 18:59 Intake Total 1920 1170 Balance 1920 1170 - Medications Medications: Current Medications Albuterol/Ipratropium (Duoneb 3 Mg/0.5 Mg (3 Ml) Ud) 3 ml INH RQ6 [facility] Last Admin: 12/21/16 13:20 Dose: Not Given Benztropine Mesylate (Cogentin) 1 mg PO BID [facility] Last Admin: 12/21/16 17:11 Dose: 1 mg Divalproex Sodium (Depakote Dr) 500 mg PO BID [facility] Last Admin: 12/21/16 17:11 Dose: 500 mg Enoxaparin Sodium (Lovenox) 55 mg SC Q12 [facility] Last Admin: 12/19/16 09:49 Dose: 55 mg Ceftriaxone Sodium 1 gm/ (Dextrose) 100 mls @ 50 mls/30 min IVPB DAILY [facility] Last Admin: 12/21/16 09:39 Dose: 50 mls/30 min Azithromycin (Zithromax 500mg In Ns Addvantage) 500 mg in 250 mls @ 167 mls/hr IVPB Q24H [facility] Last Admin: 12/21/16 13:51 Dose: 167 mls/hr Sodium Chloride (Sodium Chloride 0.9%) 1,000 mls @ 100 mls/hr IV .Q10H [facility] Last Admin: 12/21/16 13:55 Dose: 100 mls/hr Methylprednisolone (Solu-Medrol) 40 mg IVP Q8 [facility] Last Admin: 12/21/16 13:50 Dose: 40 mg Montelukast Sodium (Singulair) 10 mg PO HS [facility] Last Admin: 12/20/16 21:35 Dose: 10 mg Morphine Sulfate (Morphine) 4 mg IVP Q4 PRN PRN Reason: Pain, moderate (4-7) Last Admin: 12/19/16 16:49 Dose: 4 mg Pantoprazole Sodium (Protonix Inj) 40 mg IVP DAILY [facility] Last Admin: 12/21/16 09:37 Dose: 40 mg Risperidone (Risperdal Tab) 1 mg PO BID [facility] Last Admin: 12/21/16 17:11 Dose: 1 mg Trazodone HCl (Desyrel) 50 mg PO HS PRN PRN Reason: Insomnia - Labs Labs: 12/21/16 07:33 12/21/16 07:33 PT 11.7 SECONDS (9.7-12.2) 12/20/16 14:45 INR 1.0 12/20/16 14:45 APTT 24 SECONDS (21-34) 12/20/16 14:45
--- NOTE | 2016-12-22 12:24 | SPECPROC ---
PROCEDURE: PROCEDURE: 1. Selective left inferior epigastric artery angiogram Medications: 8 cubic centimeters 1 percent lidocaine. HISTORY: Rectus sheath hematoma with active bleeding. TECHNIQUE: Following informed consent and procedure time-out, the right groin was marked. The patient placed supine on the interventional table and the right groin was prepped and draped in the usual sterile fashion. The right common femoral artery was accessed with ultrasound guidance with micropuncture technique. A guidewire is advanced under fluoroscopic guidance into the abdominal aorta. An ultrasound image documenting needle position within the artery was permanently archived. Through a 5 [place] sheath, a Cobra glide catheter was advanced into the contralateral left external iliac artery and a nonselective angiogram was performed. A Progreat microcatheter was advanced through the Cobra catheter and the left inferior epigastric artery was catheterized. A selective left inferior epigastric artery angiogram was performed. Findings: Left inferior epigastric artery angiogram showed no extravasation. Right inferior epigastric artery angiogram showed no extravasation. Embolization was not performed. Catheters and guidewires removed. The 5 [place]tarian vascular sheath was then pulled and hemostasis achieved with 6 [place]tarian Angio-Seal. There were no immediate complications. A dressing applied. IMPRESSION: Selective left inferior epigastric artery angiogram did not show active extravasation. Bleeding has subsided. No embolization was performed. right inferior epigastric artery angiogram showed no extravasation of contrast.
== END 2016-12-21 18:40 | disposition home or self-care (01) | DRG 193 ==
LOC: C.ER 08:23 → C.9E 14:03 → C.3T 16:28
PROVIDERS: ADMIT Internal Medicine Nephrology; ATTEND Internal Medicine Nephrology
PROC: 0CJS8ZZ Inspection of Larynx, Via Natural or Artificial Opening Endoscopic (ICD-10-PCS; principal; 2016-12-19)
PROC: B40BYZZ Plain Radiography of Other Intra-Abdominal Arteries using Other Contrast (ICD-10-PCS; 2016-12-20)
DX: J18.9 Pneumonia, unspecified organism (principal); I26.99 Other pulmonary embolism without acute cor pulmonale; J45.901 Unspecified asthma with (acute) exacerbation; R13.10 Dysphagia, unspecified; F17.210 Nicotine dependence, cigarettes, uncomplicated; D50.0 Iron deficiency anemia secondary to blood loss (chronic); E07.9 Disorder of thyroid, unspecified; J39.2 Other diseases of pharynx; R09.02 Hypoxemia; M79.81 Nontraumatic hematoma of soft tissue; T45.515A Adverse effect of anticoagulants, initial encounter